=== PATIENT | male | born 1965 | race Caucasian/White ===

== ENCOUNTER 2017-07-09 05:09 | Inpatient (IN) | payer OTHER ==
[2017-07-09] VITALS (51 sets, daily range): BP systolic 99–135; BP diastolic 56–77; PULSE 67–108; RESP 13–41; TEMP 98.3–98.6; O2SAT 90–97
[~2017-07-09] VITALS: Ht 177.8 cm; Wt 76.5 kg
[~2017-07-09 05:09] MED LIST: AMBI10TA PO; ASPI325T PO; CELE20TA PO; COUM5TAB PO; ERGO50000 PO; GLUC10TA3 PO; GLUCTAB PO; HYDR10TA16 PO; IMDU30TA PO; METH500T3 PO; METO25 PO; OMEG1CAP53 PO; ROSU10 PO; TRAZ50TA78 PO
[2017-07-09] MEDS ORDERED: MORPHINE SULFATE 4 MG/ML INJ IV PUSH PRN (06:00)
[2017-07-09] MEDS ORDERED: ACETAMINOPHEN/HYDROcodone 325 MG/7.5 MG TAB PO PRN (06:00)
[2017-07-09] MEDS ORDERED: NITROGLYCERIN 0.4 MG SL 25 TABS/BTL SL PRN (06:00)
[2017-07-09] MEDS ORDERED: ACETAMINOPHEN 500 MG CPLT PO PRN (06:00)
[2017-07-09] MEDS ORDERED: SODIUM CHLORIDE 0.9% FLUSH 10 ML FLUSH IV FLUSH PRN (06:00)
[2017-07-09] MEDS ORDERED: DEXTROSE 50% IN WATER 50 ML VIAL(D50) IV PUSH PRN (06:15)
[2017-07-09] MEDS ORDERED: GLUCAGON 1 MG/ML VIAL OTHER PRN (06:15)
[2017-07-09] MEDS ORDERED: HEPARIN-D5W 25,000 U/250 ML 250 ML IV PRN ×2 (06:15→09:00)
[2017-07-09] MEDS ORDERED: CHLORHEXIDINE GLUCONATE 2 % 1 PACK (2 CLOTHS)(extra cloths) TOPICAL PRN (08:45)
[2017-07-09] MEDS: SODIUM CHLORIDE 0.9% FLUSH 10 ML FLUSH IV FLUSH SCH ×2 (09:00→21:00)
[2017-07-09] MEDS ORDERED: DIAZEPAM 10 MG TAB PO SCH (09:30)
[2017-07-09] MEDS ORDERED: MIDAZOLAM HCL 2 MG/2 ML VIAL IV PUSH SCH (09:30)
[2017-07-09] MEDS ORDERED: diphenhydrAMINE HCL 50 MG CAP PO SCH (09:30)
[2017-07-09] MEDS: INSULIN ASPART SUPPLEMENTAL SCALE SQ SCH ×4 (10:11→21:01)
[2017-07-09] MEDS: ASPIRIN 325 MG TAB PO SCH (10:12)
[2017-07-09] MEDS ORDERED: PILL SPLITTER OTHER PRN (10:15)
--- NOTE | 2017-07-09 10:18 | MB ---
cc: Erick Walls MD DATE: 07/09/2017 REASON FOR CONSULTATION: Non-ST elevation myocardial infarction. HISTORY OF PRESENT ILLNESS: The patient is a 52-year-old white male with a history of coronary artery disease, diabetes, hyperlipidemia, nonsustained ventricular tachycardia, hypertension, who presented to the emergency room in [place] with chest pain. Last night at about 7 p.m., he developed fairly severe substernal chest pressure radiating to his jaws bilaterally, associated with shortness of breath without nausea or diaphoresis. The chest discomfort waxed and waned for several hours. Each time he would try taking sublingual nitroglycerin (he took a total of 8). The chest discomfort would decrease in intensity, but recur 30-40 minutes later. The chest pain finally resolved in the ambulance en route to [facility] at approximately 3 a.m. He denies dizziness, syncope, near syncope, palpitations, pedal edema, paroxysmal nocturnal dyspnea. In retrospect, he states he has had intermittent chest discomforts for the last several months, never lasting more than a few minutes and of much less intensity. He also reports episodes of "angina" which have awakened him from sleep. PAST MEDICAL HISTORY: 1. Coronary artery disease status post stenting of all 3 major vessels in 2005 in [place]. In October 2008, he developed severe re-stenosis of the left circumflex and right coronary artery and underwent bypass surgery 11/01/2008 with a left internal mammary artery to the LAD and vein graft to the right coronary artery. The left circumflex and obtuse marginals were apparently too small for grafting. The patient developed severe and chronic problems with sternal wound infection and nonhealing necessitating a number of operations for debridement and eventually pectoralis muscle flaps. 2. Diabetes. 3. Hyperlipidemia. 4. Questionable remote history of pulmonary embolism. 5. Hypertension. 6. Nonsustained ventricular tachycardia demonstrated by monitoring in the hospital 10/2009. PAST SURGICAL HISTORY: 1. Coronary artery bypass grafting 11/01/2008. 2. Sternal re-wiring, open reduction and internal fixation of multiple sternal fractures 11/10/2008. 3. A number of sternal operations between October and February 2010, including sternal wire removal, debridement of skin, subcutaneous tissue and muscle, bilateral pectoralis flaps. CARDIAC MEDICATIONS AT HOME: None. ALLERGIES: TETANUS. FAMILY HISTORY: The patient's father has a history of a large myocardial infarction in his 30's and subsequent 3 bypass operations. SOCIAL HISTORY: The patient smokes a little less than a pack of cigarettes per day. He denies drug or alcohol abuse. REVIEW OF SYSTEMS: As in the History Of Present Illness, otherwise negative or noncontributory. He also denied headache, abdominal pain, melena, dyspepsia, bright red blood per rectum, flu symptoms, fever. PHYSICAL EXAMINATION: VITAL SIGNS: Blood pressure 110/62 with a pulse of 80, respirations 22. GENERAL: He is a well-developed, well-nourished white male, in no acute distress. NECK: Jugular venous pressure is normal. Carotid pulses are 2+ bilaterally and without bruits. CHEST: Reveals unlabored respiratory effort with clear lungs العلي. CARDIAC: He has a regular rhythm and rate without S3, S4, or murmur. ABDOMEN: He has a soft, nontender abdomen. Bowel sounds are present. There is no definite hepatosplenomegaly. EXTREMITIES: Reveals no clubbing, cyanosis or edema. LABORATORY DATA: Includes WBC 12.2, hemoglobin 14.5, platelets 164. Potassium 3.9, BUN 18, creatinine 1.10. Troponin 1.48. CK 125, CK-MB 6.9. EKG shows sinus rhythm. right atrial enlargement, nonspecific intraventricular conduction delay, anterior and lateral ST and T-wave abnormalities, consider ischemia. Chest x-ray shows increased interstitial markings of unclear chronicity. IMPRESSION: Unstable angina, non-ST elevation myocardial infarction in this 52-year-old white male with a history of coronary artery disease, diabetes, hypertension, hyperlipidemia, nonsustained ventricular tachycardia. Symptoms over the past several weeks to several months have been escalating in severity and frequency most suggestive of unstable angina. Initial cardiac enzymes are abnormal. EKG shows ischemic anterolateral ST and T-wave abnormalities. He does have known unbypassed severe left circumflex disease. I suspect, however, that the culprit lesion accounting for her symptoms is in the vein graft to the right coronary artery. I have recommended, given the instability of his symptoms, which have been occurring at rest, cardiac catheterization with probable percutaneous coronary or graft intervention. The risks, which have been explained to him including, but not limited to , myocardial infarction, stroke, arrhythmia, bleeding, infection and renal failure. RECOMMENDATIONS: 1. Cardiac catheterization today. At this point, the patient would like to think about it further. 2. Start beta herbert and KODY inhibitor therapy as his blood pressures will allow. 3. Check a fasting lipid profile, although apparently he has been statin intolerant in the past. 4. If he does not undergo cardiac catheterization, check a 2-D echo to assess his left ventricular function. MD YOEL Rucker/KEN , 09:17 AM , 10:17 AM KURTIS
[2017-07-09] MEDS: SODIUM CHLOR 0.9% 1000 ML INJ 1,000 ML IV SCH ×2 (10:24→19:18)
[2017-07-09 10:47] LABS: TROPONIN I 4.95 NG/ML (0.02-0.05)
[2017-07-09] MEDS ORDERED: MIDAZOLAM HCL 2 MG/2 ML VIAL ONE (11:45)
[2017-07-09] MEDS ORDERED: HEPARIN-NS/PF FLUSH BAG 1,000 ML IV FLUSH ONE (11:46)
[2017-07-09] MEDS ORDERED: SODIUM CHLOR 0.9% 1000 ML INJ 1,000 ML IV SCH (12:48)
--- NOTE | 2017-07-09 12:55 | CATHPROC ---
[facility] HIS Report Study Information Study Number Admission Scheduled Start Study Start [id number] Jul 09 2017 6:50AM 07/09/2017 Jul 09 2017 11:32AM [place] Service Cardiac Catheterization Admit Source Facility Department Emergency department [facility] - [facility] Manager Physician and Clinical Staff Initial Erick Jones Sales Agent Pavel Mathews,RN Sales Agent Pavel Key,RN Recorder Emilie Rendon,RT(R) Scrub Long Dodson RCIS(BS) Procedures Performed Procedure Location (Site) Vessel Name Angiogram LV Aortic Angiogram LV LV Ventricle Coronary Angiograms LCA Left Coronary Coronary Angiograms RCA Right Coronary Coronary Angiograms ROLAND-LAD Left Coronary Coronary Angiograms SVG-RCA Right Coronary L Heart Cath Wire insertion Fem Art (right) Femoral Art Equipment Time Duck Bill Operator Description Size Mfg Part Number Used/Scraped TRANSDUCER, TRUWAVE [id number] 11:38 TRUJILLO MYERS * Used W/STOCKCOCK *[id number] *[id number] *[id number] *[id number] *[id number] WIRE, HYDROSTEER 150CM [id number] 12:26 DAIG/ST. [employer]LA [employer] 150CM Used ANGLED GLIDE *[id number] 11:38 MEDLINE INDUSTRIES PACK, CCL CUSTOM * Used *[id number] 11:38 MEDLINE PACER PEN, SKIN DUAL W/ RULER * Used *[id number] 11:38 [employer] MEDICAL SHEATH, FR6.5 PRELUDE 11CM FR 6.5 038ACT Used *[id number] 11:38 [employer] MEDICAL WIRE, 3MMJ .035 180CM 180CM Used *[id number] 11:38 NAMIC MANIFOLD, 4 PORT * Used *[id number] 11:38 NYCOMED OMNIPAQUE, 350 MG, 150ML 150ML [id number] Used 12:32 NYCOMED OMNIPAQUE, 350 MG, 50ML 50ML [id number] Used 12:34 NYCOMED OMNIPAQUE, 350 MG, 50ML 50ML [id number] Used [id number] 11:38 PADRON MEDICAL BLANKET,WARM AIR CCL * Used *[id number] Equipment Model, Serial, Lot Number and Expiration Data Description Model Number Serial Number Lot Number Expiration Date WIRE, HYDROSTEER 150CM [id number] 05-08-2020 ANGLED GLIDE History: Allergies Allergy Reaction tetanus immune globulin tetanus toxoid, adsorbed Edema History: Risk Factors Family History of Hypertension Dyslipidemia Previous DC Previous Heart Failure Premature CAD Yes Yes Yes Yes No Prior Valve Prior PCI Prior PCIDate Prior CABG Prior CABGDate Surgery No Yes 03/11/2005 Yes 11/01/2008 Cerebrovascular Peripheral Artery Chronic Lung On Dialysis Diabetes Diabetes Therapy Disease Disease Disease No No No No Yes Insulin History: Symptoms/Diagnosis Selection Items Chest pain SOB History: Other Disease Selection Items CAD History: Other Current Smoker Method Packs a Day Years Used Pack Years Yes Cigarettes 1 43 43 Labs Hgb (g/dl) Hct (%) WBC (l/cumm) Platelets (thousands) 11.60-17.00 35.00-51.00 4.00-11.00 150.00-450.00 14.5 42 12.2 164 Glucose (mg/dl) BUN (mg/dl) Creatinine (mg/dl) BUN:Creatinine (1:x) 74.00-106.00 7.00-18.00 0.50-1.30 10.00-20.00 214 18 1.1 16.4 Na (meq/l) K (meq/l) 136.00-145.00 3.50-5.10 139 3.9 INR (PTT:PT) 0.90-1.10 1 Troponin I (ng/ml) CPK (u/l) CPK-MB (ng/ML) 0.02-0.05 26.00-308.00 0.50-3.60 4.95 188 6.9 Medication Medication Total Dose (Bolus/Oral) Medication Total Dosage/Unit 1% XYLOCAINE 20 mL FENTANYL 25 mcg VERSED 1 mg Medications (Bolus/Oral) Medication Time Given Dosage/Unit Administered By Reason VERSED 07/09/2017 12:18:56 PM 1 mg Pavel Key 1 mg VERSED given in lab by Pavel Key RN in Left Antecubital via Peripheral IV. Ordered by Erick Walls. FENTANYL 07/09/2017 12:19:10 PM 25 mcg Pavel Key 25 mcg FENTANYL given in lab by Pavel Key RN in Left Antecubital via Peripheral IV. Ordered by Erick Millard. 1% XYLOCAINE 07/09/2017 12:19:36 PM 20 mL Erick Walls 20 mL 1% XYLOCAINE given in lab by Erick Walls in Right Groin via Subcutaneous. Medication (Drip) Medication Time Given Dosage/Unit Concentration/Unit Diluent (ml) Solution IV Solutions 07/09/2017 11:52:36 AM 50 mL (IV) NaCl .9 IV Solutions given in lab by Pavel Mathews RN in Left Antecubital via Peripheral IV. Pump/Drip Flow u sing NaCl .9. Initial Case Assessment Cardiovascular HR Rhythm NIBP Chest Pain 66 bundle branch 100/59 0 Edema Present Skin color Skin None Normal Warm Dry Circulatory - Right Pulses Dorsalis Pedis Femoral 2 2 Scale (0,1,2,3,4,d) Circulatory - Left Pulses Dorsalis Pedis Femoral 2 2 Scale (0,1,2,3,4,d) Neurological State Oriented to time-place- Alert Moves all extremities person Respiration - General Respiration Rate SpO2 (%) O2 (lpm) (B/min) 16 99 2 Chronological Log Time Study Chronological Log 11:51:20 Patient arrived via Bed. 11:52:23 Patient Name, D.O.B, / Armband Verified By R.N. 11:52:24 Consent signed by the physician and the patient and verified by the Pre School Manager staff. 11:52:24 Pre-op and post- op instructions given; patient acknowledges understanding of instruction s. 11:52:26 Verbal Stimulation=2 Physical Stimulation=2 Airway=2 Respiration=2 TOTAL=8. (0=absent, 1= limited, 2=present) 11:52:28 Presedation assessment performed by Pre School Manager RN. 11:52:30 Patient has been NPO for More than 6Hrs. 11:52:31 Skin Breakdown- none per pt 11:52:32 Patient Warmer Placed on the Table. 11:52:34 Shantel Prominences Protected 11:52:35 A # 22 IV was noted in the Antecubital (left). Grade = 0 11:52:36 IV Solutions given in lab by Pavel Mathews RN in Left Antecubital via Peripheral IV. Pump/D rip Flow using NaCl .9. 11:52:37 History and physical on the chart or being dictated. Vitals capture started with the following parameters, Patient=Adult, Interval=5 min, Initial Pr etxtvr=124 mmHg, 12:00:21 Deflation Rate=5 mmHg, Cuff placed on Left Arm 12:00:40 Reference ECG taken 12:00:59 HR=68 bpm, ZJVC=394/59 mmhg, SpO2=98.0 %, Resp=20 B/min 12:03:27 Bilateral groins prepped with 2% chlorhexidine, and draped after a 3 minute waiting time. Assessment: Initial Case, HR=66 BPM, Rhythm=bundle branch, BYQJ=664/59 mmhg, Chest Pain=0, Wiliam a=None, Color=Normal, Skin = Warm, Dry Right Pulses: Cesar Ped=2, Femoral=2 12:04:06 Left Pulses: Cesar Ped=2, Femoral=2 Neurological: State=Alert, Ox3, MELTON Respiration: Resp=16 B/min, SpO2=99 %, O2=2 lpm 12:05:36 MD paged 12:05:50 HR=66 bpm, ECUU=047/64 mmhg, SpO2=98.0 %, Resp=16 B/min 12:09:59 Pressure channel 1 zeroed. 12:10:53 HR=66 bpm, NIJR=180/55 mmhg, SpO2=98.0 %, Resp=22 B/min 12:11:17 MD responded 12:15:14 MD arrived. 12:15:52 HR=66 bpm, YVTO=095/63 mmhg, SpO2=97.0 %, Resp=22 B/min Time Out. Correct patient, correct procedure, correct physician, power injector not loaded with contrast with surgical 12:18:17 team present. Time Out Concurred by MD and individual staff in procedure. 12:18:56 1 mg VERSED given in lab by Pavel Key, RN in Left Antecubital via Peripheral IV. Ordere d by Erick Walls. 12:19:10 25 mcg FENTANYL given in lab by Pavel Key RN in Left Antecubital via Peripheral IV. Or dered by Erick Walls. 12:19:33 Case Start 12:19:36 20 mL 1% XYLOCAINE given in lab by Erick Walls in Right Groin via Subcutaneous. 12:20:52 Access site was Right Femoral Artery. 12:20:56 HR=63 bpm, LLXM=985/60 mmhg, SpO2=99.0 %, Resp=16 B/min 12:20:58 A SHEATH, FR6.5 PRELUDE 11CM FR 6.5 was advanced into the Fem Art (right) using the Percuta neous technique. A JL 4.0 INFINITI CATHETER FR 6 was advanced over a wire. OMNIPAQUE, 350 MG, 150ML 150ML was us ed for 12:21:39 injections. 12:22:25 The LCA was injected and visualized at various angles. OMNIPAQUE, 350 MG, 150ML 150ML used . 12:22:40 Catheter was removed A 3DRC INFINITI CATHETER FR 6 was advanced over a wire. OMNIPAQUE, 350 MG, 150ML 150ML was used for 12:23:04 injections. 12:23:45 The RCA was injected and visualized at various angles. OMNIPAQUE, 350 MG, 150ML 150ML used . 12:24:45 A WIRE, 3MMJ .035 180CM 180CM was inserted via Fem Art (right). 12:25:39 Wire removed 12::57 HR=63 bpm, NIBP=98/59 mmhg, SpO2=98.0 %, Resp=17 B/min 12:26:14 A WIRE, HYDROSTEER 150CM ANGLED GLIDE 150CM was inserted via Fem Art (right). 12:26:48 [place] Wire removed 12::57 The ROLAND-LAD was injected and visualized at various angles. OMNIPAQUE, 350 MG, 150ML 150ML used. 12:28:17 Catheter was removed A MPA-2 INFINITI CATHETER FR 6 was advanced over a wire. OMNIPAQUE, 350 MG, 150ML 150ML was use d for 12:28:26 injections. Recorded Pressure: Ao, HR=69, Condition=Condition 1 12:29:24 (Aorta) Ao 99/56/73 12:30:33 The SVG-RCA was injected and visualized at various angles. OMNIPAQUE, 350 MG, 150ML 150ML u sed. STUMP 12:30:56 HR=66 bpm, NIBP=97/58 mmhg, SpO2=98.0 %, Resp=18 B/min 12:31:08 Catheter was removed A PIGTAIL STR INFINITI CATHETER FR 6 was advanced over a wire. OMNIPAQUE, 350 MG, 150ML 150ML w as used for :31:56 injections. Recorded Pressure: LV, HR=67, Condition=Condition 1 12:32:48 (Left Ventricle) LV 97/16/25 12:34:11 The LV was injected at 12 cc/sec for a total of 42. OMNIPAQUE, 350 MG, 50ML 50ML used. Recorded Pressure: LV, Ao, HR=70, Condition=Condition 1 12:34:20 (Left Ventricle) LV 100/12/20, (Aorta) Ao 99/56/73 12:35:08 The Aortic was injected at 12 cc/sec for a total of 40. OMNIPAQUE, 350 MG, 50ML 50ML used. 12:35:30 Catheter was removed 12:35:57 HR=79 bpm, WVAR=792/61 mmhg, SpO2=99.0 %, Resp=19 B/min 12:36:22 An injection in the Fem Art (right) was made through the SHEATH, FR6.5 PRELUDE 11CM FR 6.5. 12:37:46 Case End 12:38:09 Activated Clotting Time Drawn 12:40:56 HR=66 bpm, KYHY=137/67 mmhg, QzT9=222.0 %, Resp=16 B/min 12:42:37 ACT (Normal Range 90-180) = 136 12:43:04 Sheath removed; pressure applied to access site. 12:44:17 No case complications noted. 12:44:23 Cine recording checked. 12:44:28 A Left Heart Cath was performed. 12:45:57 HR=75 bpm, CEEF=607/70 mmhg, QmI5=134.0 %, Resp=20 B/min 12:51:00 HR=71 bpm, LYNW=121/71 mmhg, SpO2=99.0 %, Resp=18 B/min 12:55:00 Sterile dressing applied to site 12:55:09 Vitals capture stopped. 13:00:00 Patient moved to stretcher End Study - Contrast Media Used In Study Contrast Total Opened (mL) Total Used (mL) Total Wasted (mL) Omnipaque 130 130 0 End Study - Maximum Contrast Load Max Contrast Load (mL) 338.6 End Study - Radiation Exposure Fluoro Time (minutes) 5.7 End Study - Sheaths Sheaths Pulled By Sheath Hold Time (min) Long Dodson 20 End Study - Patient Disposition Complications Transferred To Interventional Outcome No Telemetry Bed No attempt made
[2017-07-09] MEDS ORDERED: ATROPINE SULFATE 1 MG/ML VIAL IV PRN (13:00)
[2017-07-09] MEDS ORDERED: MISC INFORMATION XX ONE (13:00)
[2017-07-09] MEDS ORDERED: SODIUM CHLOR 0.9% 250 ML INJ 250 ML IV PRN (13:00)
--- NOTE | 2017-07-09 13:00 | MA ---
cc: Erick Walls MD DATE: 07/09/2017 PROCEDURE: Left heart catheterization, selective coronary and graft angiography, left ventriculography, aortic root injection. PROCEDURE NOTES: The patient was brought to the cardiac catheterization laboratory in a fasting state after having signed informed consent. The right groin was prepped and draped as per policy and anesthetized with 1% lidocaine. Arterial access was obtained via the right femoral artery and a 6-[place] sheath placed. Coronary arteriography was performed using 6-[place] Mon[place] left 4.0 and right progressive catheters. The left internal mammary artery was engaged with a progressive right catheter. The vein graft to the right coronary artery was engaged with a multipurpose catheter. Left ventriculography and aortic root injection were done using a standard 6-[place] pigtail. There were no apparent, immediate complications. Manual pressure was applied to his femoral arteriotomy site to achieve good hemostasis. HEMODYNAMIC DATA: Left ventricle 100 with an end diastolic pressure 20, aorta 99/56 with a mean of 73. There was no significant transvalvular aortic gradient on pullback of the pigtail catheter. CORONARY ARTERIOGRAPHY: The left main is a relatively short vessel with possibly up to 40% ostial to mid stenosis. The left anterior descending is totally occluded proximally. The left circumflex is totally occluded proximally. The right coronary artery is totally occluded at its origin. GRAFT ANGIOGRAPHY: The left internal mammary artery to the LAD is widely patent. There is a fairly extensive collateral network from the LAD to the right coronary artery and scant collaterals to the left circumflex. There is also faint filling of a diffusely and severely diseased diagonal. The vein graft to the right coronary artery is totally occluded near its origin, confirmed by aortic root injection. LEFT VENTRICULOGRAPHY: Contrast injection of the left ventricle reveals severe global hypokinesis. Ejection fraction is likely no greater than 10-15%. CONCLUSIONS: 1. Severe 3-vessel [place] coronary artery disease. 2. Right dominant system. 3. Patent left internal mammary artery to the left anterior descending, totally occluded vein graft to the right coronary artery. 4. Good left to right collaterals. 5. Severely reduced left ventricular systolic function with ejection fraction estimated at 10%. MD YOEL Rucker/KEN , 12:46 PM , 12:59 PM KURTIS
[2017-07-09] MEDS ORDERED: IOHEXOL 350 MG/ML 50 ML BTL (for Cath Lab) OTHER ONE (14:54)
[2017-07-09] MEDS ORDERED: IOHEXOL 350 MG/ML 100 ML BTL (for Cath Lab) OTHER ONE (14:54)
--- NOTE | 2017-07-09 16:11 | HHI.HP ---
[facility] Service [facility] Primary Care Physician Unknown Admission Diagnosis Diagnoses: (1) Non-ST elevation OK (NSTEMI) Chief Complaint: Chest pain History of Present Illness 52-year-old man with history of CAD, hyperlipidemia, hypertension and noncompliant with medical care presented to [facility] ED last night for evaluation of an acute onset of substernal chest pain rated 8 out of 10 in intensity with radiation to bilateral jaws associated with shortness of breath without any palpitation, diaphoresis or nausea.. Patient reported the pain to be on and off and states soma initially improved with nitroglycerin for less than 30 minutes. A my exam this morning, patient reported improvement of symptoms. Chest x-ray in the ED was noted to be without any cardio pulmonary disease. Initial cardiac enzyme elevated to 1.4. Patient denies any GI bleed. Review of Systems Except as stated in HPI: all other systems reviewed are Neg Past Family Social History Past Medical History 1. CAD 2. Diabetes. 3. Hyperlipidemia. 4. Questionable remote history of pulmonary embolism. 5. Hypertension. 6. Nonsustained ventricular tachycardia demonstrated by monitoring in the hospital 10/2009. Past Surgical History 1. Coronary artery bypass grafting 11/01/2008. 2. Sternal re-wiring, open reduction and internal fixation of multiple sternal fractures 11/10/2008. 3. A number of sternal operations between October and February 2010, including sternal wire removal, debridement of skin, subcutaneous tissue and muscle, bilateral pectoralis flaps. Reported Medications See EMR Allergies: Coded Allergies: tetanus toxoid, adsorbed (Unverified Allergy, Severe, Edema, 10/23/16) tetanus immune globulin (Unverified Allergy, Unknown, 10/23/16) Family History CAD, hypertension, diabetes Social History Patient smokes 8-10 cigarettes per day, denies alcohol or illicit drug intake. Physical Exam Vital Signs Vital Signs Date Time Temp Pulse Resp B/P (MAP) Pulse Ox O2 Delivery O2 Flow Rate FiO2 07/09/17 14:15 77 41 103/60 (74) 91 07/09/17 14:15 77 41 103/60 (74) 91 07/09/17 14:00 72 5/1/18 14:00 78 41 100/58 (72) 90 07/09/17 14:00 71 41 100/58 (72) 90 07/09/17 14:00 78 41 100/58 (72) 90 07/09/17 14:00 78 41 100/58 (72) 90 07/09/17 14:00 78 41 100/58 (72) 90 07/09/17 13:00 69 18 109/66 (80) 07/09/17 12:00 72 07/09/17 12:00 98.6 69 18 100/58 (72) 97 07/09/17 10:00 72 Physical Exam GENERAL: This is a well-nourished, well-developed patient, in no apparent distress. SKIN: No rashes, ecchymoses or lesions. Cool and dry. HEAD: Atraumatic. Normocephalic. No temporal or scalp tenderness. EYES: Pupils equal round and reactive. Extraocular motions intact. No scleral icterus. No injection or drainage. ENT: Nose without bleeding, purulent drainage or septal hematoma. Throat without erythema, tonsillar hypertrophy or exudate. Uvula midline. Airway patent. NECK: Trachea midline. No JVD or lymphadenopathy. Supple, nontender, no meningeal signs. CARDIOVASCULAR: Regular rate and rhythm without murmurs, gallops, or rubs. RESPIRATORY: Clear to auscultation. Breath sounds equal bilaterally. No wheezes , rales, or rhonchi. GASTROINTESTINAL: Abdomen soft, non-tender, nondistended. No hepato-splenomegaly , or palpable masses. No guarding. MUSCULOSKELETAL: Extremities without clubbing, cyanosis, or edema. No joint tenderness, effusion, or edema noted. No calf tenderness. Negative Homans sign bilaterally. NEUROLOGICAL: Awake and alert. Cranial nerves II through XII intact. Motor and sensory grossly within normal limits. Five out of 5 muscle strength in all muscle groups. Normal speech. Laboratory Laboratory Tests Test 07/09/17 07:30 07/09/17 10:01 Nasal Screen MRSA (PCR) MRSA NOT DETECTED Activated Partial Thromboplast Time 37.4 Total Creatine Kinase 188 Troponin I 4.95 Septic Shock Reassessment Septic shock perfusion: reassessment completed Caprini VTE Risk Assessment Caprini VTE Risk Assessment: No/Low Risk (score <= 1) Caprini Risk Assessment Model Point Value = 1 Point Value = 2 Point Value = 3 Point Value = 5 Age 41-60 Minor surgery BMI > 25 kg/m2 Swollen legs Varicose veins or History of unexplained or recurrent spontaneous Oral contraceptives or hormone replacement Sepsis (< 1 month) Serious lung disease, including pneumonia (< 1 month) Abnormal pulmonary function Acute myocardial infarction Congestive heart failure (< 1 month) History of inflammatory bowel disease Medical patient at bed rest Age 61-74 Arthroscopic surgery Major open surgery (> 45 min) Laparoscopic surgery (> 45 min) Malignancy Confined to bed (> 72 hours) Immobilizing plaster cast Central venous access Age >= 75 History of VTE Family history of VTE Factor V Leiden Prothrombin [id number] Lupus anticoagulant Anticardiolipin antibodies Elevated serum homocysteine Heparin-induced thrombocytopenia Other congenital or acquired thrombophilia Stroke (< 1 month) Elective arthroplasty Hip, pelvis, or leg fracture Acute spinal cord injury (< 1 month) Prophylaxis Regimen Total Risk Factor Score Risk Level Prophylaxis Regimen 0-1 Low Early ambulation 2 Moderate Order ONE of the following: *Sequential Compression Device (SCD) *Heparin 5000 units SQ BID 3-4 Higher Order ONE of the following medications: *Heparin 5000 units SQ TID *Enoxaparin/Lovenox 40 mg SQ daily (WT < 150 kg, CrCl > 30 mL/min) *Enoxaparin/Lovenox 30 mg SQ daily (WT < 150 kg, CrCl > 10-29 mL/min) *Enoxaparin/Lovenox 30 mg SQ BID (WT < 150 kg, CrCl > 30 mL/min) AND/OR *Sequential Compression Device (SCD) 5 or more Highest Order ONE of the following medications: *Heparin 5000 units SQ TID (Preferred with Epidurals) *Enoxaparin/Lovenox 40 mg SQ daily (WT < 150 kg, CrCl > 30 mL/min) *Enoxaparin/Lovenox 30 mg SQ daily (WT < 150 kg, CrCl > 10-29 mL/min) *Enoxaparin/Lovenox 30 mg SQ BID (WT < 150 kg, CrCl > 30 mL/min) AND *Sequential Compression Device (SCD) Assessment and Plan Problem List: (1) Non-ST elevation OK (NSTEMI) ICD Code: I21.4 - Non-ST elevation (NSTEMI) myocardial infarction Assessment and Plan 52-year-old man with Non-ST elevation OK Currently on heparin drip Cardiology consulted for evaluation for left heart catheterization Start beta-herbert, KODY inhibitor, aspirin, statin Continue with Nitropaste Check 2D echo, lipid profile CXR noted and review by me without any CPD Elevated Blood glucose Check hA1c and treat accordingly Tobacco abuse Tobacco counseling cessation provided DVT prophylaxis: Heparin Code Status Full code Discussed Condition With Patient Physician Certification 2 Midnight Certification Type: Admission for Inpatient Services Order for Inpatient Services The services are ordered in accordance with Medicare regulations or non- Medicare payer requirements, as applicable. In the case of services not specified as inpatient-only, they are appropriately provided as inpatient services in accordance with the 2-midnight benchmark. Estimated LOS (days): 2 days is the estimated time the patient will need to remain in the hospital, assuming treatment plan goals are met and no additional complications. Post-Hospital Plan: Not yet determined Chapincito Kelley MD July 09, 2017 16:11
[2017-07-09 18:06] LABS: TROPONIN I 4.98 NG/ML (0.02-0.05)
[2017-07-09] MEDS: ENALAPRIL MALEATE 2.5 MG TAB PO SCH (21:01)
[2017-07-09] MEDS: METOPROLOL TARTRATE 25 MG TAB PO SCH (21:01)
[2017-07-10] VITALS (13 sets, daily range): BP systolic 87–116; BP diastolic 48–66; PULSE 59–80; RESP 18–28; TEMP 97.8–98; O2SAT 92–99
[2017-07-10] MEDS: CHLORHEXIDINE GLUCONATE 2 % 1 PACK (2 CLOTHS)(taper/protocol) TOPICAL SCH (04:00)
[2017-07-10 06:52] LABS: AUTOMATED NEUTROPHIL # 5.1 TH/MM3 (1.8-7.7); BASOPHIL # 0.1 TH/MM3 (0-0.2); EOSINOPHIL % 0.7 % (0.0-4.0); HEMATOCRIT 40.1 % (39.0-51.0); HEMOGLOBIN 13.7 GM/DL (13.0-17.0); LYMPH % 20.3 % (9.0-44.0); LYMPHOCYTE # 1.4 TH/MM3 (1.0-4.8); MEAN CELL VOLUME 96.6 FL (80.0-100.0); MEAN CORPUSCULAR HEMOGLOBIN 32.9 PG (27.0-34.0); MEAN PLATELET VOLUME 10.2 FL (7.0-11.0); MONO % 4.4 % (0.0-8.0); MONOCYTE # 0.3 TH/MM3 (0-0.9); NEUT % 73.6 % (16.0-70.0); PLATELET COUNT 123 TH/MM3 (150-450); RED BLOOD COUNT 4.15 MIL/MM3 (4.50-5.90); RED CELL DISTRIBUTION WIDTH 14.3 % (11.6-17.2); WHITE BLOOD COUNT 6.9 TH/MM3 (4.0-11.0)
[2017-07-10 07:13] LABS: BICARBONATE 25.9 MEQ/L (21.0-32.0); BLOOD UREA NITROGEN 16 MG/DL (7-18); CALCIUM 8.1 MG/DL (8.5-10.1); CHLORIDE 106 MEQ/L (98-107); CHOLESTEROL 408 MG/DL (120-200); CREATININE 0.96 MG/DL (0.60-1.30); GLOMERULAR FILTRATION RATE 83 ML/MIN (>89); GLUCOSE,RANDOM 131 MG/DL (74-106); SODIUM (NA) 139 MEQ/L (136-145); TRIGLYCERIDES 147 MG/DL (42-150)
[2017-07-10 07:15] LABS: CHOLESTEROL/ HDL RATIO 13.97 RATIO; HDL CHOLESTEROL 29.2 MG/DL (40.0-60.0); LDL CHOLESTEROL 349 MG/DL (0-99)
--- NOTE | 2017-07-10 08:03 | PD.CARD.PN ---
Subjective Subjective Remarks Denies further CP. No dyspnea, PND, dizziness, palpitations. Objective Medications Item Value Date Time Metoprolol 12.5 mg 07/09/172099 Tartrate Q12HR/PO 07/09/172100 (Lopressor) Enalapril Maleate 2.5 mg 07/09/172099 (Vasotec) DAILY@2100/PO 07/09/172100 Aspirin 325 mg 07/09/17 0900 (Aspirin) DAILY/PO 07/09/17 1012 Current Medications Medications (Trade) Dose Ordered Sig/[place] Route Start Time Stop Time Status Last Admin (NS Flush) 2 ml BID IV FLUSH 07/09/17 09:00 07/09/17 09:00 (NS Flush) 2 ml UNSCH PRN IV FLUSH 07/09/17 06:00 (Aspirin) 325 mg DAILY PO 07/09/17 09:00 07/09/17 10:12 (Nitrostat Sl) 0.4 mg Q5M PRN SL 07/09/17 06:00 (Tylenol) 500 mg Q4H PRN PO 07/09/17 06:00 ([place] 7.5-325 Mg) 1 tab Q4H PRN PO 07/09/17 06:00 (Morphine Inj) 2 mg Q3H PRN IV PUSH 07/09/17 06:00 (D50w (Vial) Inj) 50 ml UNSCH PRN IV PUSH 07/09/17 06:15 (Glucagon Inj) 1 mg UNSCH PRN OTHER 07/09/17 06:15 (NovoLOG SUPPLEMENTAL SCALE) 1 ACHS SLIDING SCALE SQ 07/09/17 08:00 07/09/17 21:01 ([facility] Nursing Information) Patient in critical care unit? Ass... Q361D .XX 07/09/17 08:45 (Chlorhexidine 2% Cloth) 3 pack DAILY@04 TOPICAL 07/10/17 04:00 07/14/17 04:01 (Chlorhexidine 2% Cloth) 3 pack UNSCH PRN TOPICAL 07/09/17 08:45 07/14/17 08:38 (Lopressor) 12.5 mg Q12HR PO 07/09/17 21:00 07/09/17 21:01 (Vasotec) 2.5 mg DAILY@2100 PO 07/09/17 21:00 07/09/17 21:01 Sodium Chloride 1,000 ml @ 100 mls/hr Q10H IV 07/09/17 09:18 07/14/17 09:17 07/09/17 10:24 (Benadryl) 50 mg [employer] PO 07/09/17 09:30 07/13/17 09:29 07/09/17 10:19 (Valium) 10 mg [employer] PO 07/09/17 09:30 07/13/17 09:29 07/09/17 11:25 (fentaNYL INJ) 50 mcg [employer] IV PUSH 07/09/17 09:30 07/13/17 09:29 07/09/17 11:26 (Versed Inj) 1 mg [employer] IV PUSH 07/09/17 09:30 07/13/17 09:29 07/09/17 11:25 (Pill Splitter) 1 ea UNSCH PRN OTHER 07/09/17 10:15 07/09/17 21:02 (Atropine Inj) 0.5 mg UNSCH PRN IV 07/09/17 13:00 Sodium Chloride 250 ml @ 0 mls/hr UNSCH X1 PRN IV 07/09/17 13:00 07/10/17 12:59 Vital Signs / I&O Vital Signs Date Time Temp Pulse Resp B/P (MAP) Pulse Ox O2 Delivery O2 Flow Rate FiO2 07/10/17 06:00 59 07/10/17 04:00 98.0 64 23 92/48 (63) 96 07/10/17 04:00 64 07/10/17 02:00 80 07/10/17 00:00 69 07/10/17 00:00 97.8 69 28 87/50 (62) 92 07/09/17 23:00 75 28 105/61 (76) 93 07/09/17 22:00 70 20 107/59 (75) 91 07/09/17 22:00 70 07/09/17 21:45 68 24 114/60 (78) 94 07/09/17 21:34 68 23 94 07/09/17 21:30 72 24 111/57 (75) 95 07/09/17 21:15 72 28 111/59 (76) 95 07/09/17 21:00 68 25 112/63 (79) 94 5/1/18 20:45 72 27 112/63 (79) 94 07/09/17 20:34 75 29 94 07/09/17 20:30 71 23 109/59 (76) 94 07/09/17 20:15 77 29 118/62 (80) 94 07/09/17 20:00 87 07/09/17 20:00 98.3 87 28 127/74 (91) 93 07/09/17 20:00 87 33 127/74 (91) 93 07/09/17 19:45 108 33 135/77 (96) 96 07/09/17 19:34 93 32 94 07/09/17 18:34 73 27 109/61 (77) 93 07/09/17 18:02 70 22 106/60 (75) 95 07/09/17 18:02 73 27 109/61 (77) 93 07/09/17 18:00 73 27 109/61 (77) 93 07/09/17 18:00 70 22 106/60 (75) 95 07/09/17 18:00 72 07/09/17 17:49 70 23 93 07/09/17 17:45 70 24 112/58 (76) 94 07/09/17 17:34 71 23 95 07/09/17 17:30 72 25 119/64 (82) 96 07/09/17 17:19 75 21 96 07/09/17 17:15 84 23 117/64 (81) 93 07/09/17 17:04 69 24 95 07/09/17 17:00 70 25 103/56 (72) 95 07/09/17 17:00 70 25 103/56 (72) 95 07/09/17 16:49 72 23 95 07/09/17 16:45 69 22 99/57 (71) 95 07/09/17 16:45 69 22 99/57 (71) 95 07/09/17 16:34 71 22 94 07/09/17 16:30 71 23 100/57 (71) 95 07/09/17 16:30 71 23 100/57 (71) 95 07/09/17 16:19 68 24 95 07/09/17 16:15 68 23 99/58 (72) 94 07/09/17 16:15 68 23 99/58 (72) 94 07/09/17 16:04 70 23 95 07/09/17 16:00 70 22 106/60 (75) 95 07/09/17 16:00 72 07/09/17 16:00 70 22 106/60 (75) 95 07/09/17 15:49 70 23 93 07/09/17 15:45 67 26 105/60 (75) 93 07/09/17 15:45 67 26 105/60 (75) 93 07/09/17 15:34 71 27 93 07/09/17 15:30 72 26 110/61 (77) 94 07/09/17 15:15 72 22 109/66 (80) 95 07/09/17 15:02 75 13 93 07/09/17 15:00 75 20 118/71 (87) 94 07/09/17 15:00 82 07/09/17 15:00 75 20 118/71 (87) 94 07/09/17 14:47 75 25 94 07/09/17 14:45 73 22 113/67 (82) 93 07/09/17 14:45 73 22 113/67 (82) 93 07/09/17 14:32 80 30 97 07/09/17 14:30 81 29 120/67 (84) 95 07/09/17 14:30 81 29 120/67 (84) 95 07/09/17 14:17 77 36 92 07/09/17 14:15 77 41 103/60 (74) 91 07/09/17 14:15 77 41 103/60 (74) 91 07/09/17 14:15 77 41 103/60 (74) 91 07/09/17 14:15 77 41 103/60 (74) 91 07/09/17 14:02 79 32 90 07/09/17 14:00 72 07/09/17 14:00 78 41 100/58 (72) 90 07/09/17 14:00 78 41 100/58 (72) 90 07/09/17 14:00 71 41 100/58 (72) 90 07/09/17 14:00 78 41 100/58 (72) 90 07/09/17 14:00 78 41 100/58 (72) 90 07/09/17 14:00 78 41 100/58 (72) 90 07/09/17 13:00 69 18 109/66 (80) 07/09/17 12:00 72 07/09/17 12:00 98.6 69 18 100/58 (72) 97 07/09/17 10:00 72 I/O 07/09/17 07/09/17 07/09/17 07/10/17 07/10/17 07/10/17 07:00 15:00 23:00 07:00 15:00 23:00 Intake Total 320 ml 1050 ml Output Total 475 ml 750 ml Balance -155 ml 300 ml Intake Oral 320 ml 360 ml IV Total 690 ml Output Urine Total 475 ml 750 ml # Voids 1 3 Physical Exam GENERAL: Well developed, well nourished. No acute distress. HEENT: Jugular venous pressure is normal. CHEST: Lungs clear to auscultation bilaterally. Unlabored respiratory effort. CARDIAC: Regular rate and rhythm without S3, S4, or murmur. ABDOMEN: Soft, nontender, no hepatosplenomegaly. Bowel sounds present. EXTREMITIES: No clubbing, cyanosis, or edema. Laboratory Laboratory Tests Test 07/09/17 10:01 07/09/17 16:55 07/10/17 04:43 Activated Partial Thromboplast Time 37.4 SEC Total Creatine Kinase 188 U/L 161 U/L Troponin I 4.95 NG/ML 4.98 NG/ML White Blood Count 6.9 TH/MM3 Red Blood Count 4.15 MIL/MM3 Hemoglobin 13.7 GM/DL Hematocrit 40.1 % Mean Corpuscular Volume 96.6 FL Mean Corpuscular Hemoglobin 32.9 PG Mean Corpuscular Hemoglobin Concent 34.0 % Red Cell Distribution Width 14.3 % Platelet Count 123 TH/MM3 Mean Platelet Volume 10.2 FL Neutrophils (%) (Auto) 73.6 % Lymphocytes (%) (Auto) 20.3 % Monocytes (%) (Auto) 4.4 % Eosinophils (%) (Auto) 0.7 % Basophils (%) (Auto) 1.0 % Neutrophils # (Auto) 5.1 TH/MM3 Lymphocytes # (Auto) 1.4 TH/MM3 Monocytes # (Auto) 0.3 TH/MM3 Eosinophils # (Auto) 0.0 TH/MM3 Basophils # (Auto) 0.1 TH/MM3 CBC Comment DIFF FINAL Differential Comment Blood Urea Nitrogen 16 MG/DL Creatinine 0.96 MG/DL Random Glucose 131 MG/DL Calcium Level 8.1 MG/DL Sodium Level 139 MEQ/L Potassium Level 4.1 MEQ/L Chloride Level 106 MEQ/L Carbon Dioxide Level 25.9 MEQ/L Anion Gap 7 MEQ/L Estimat Glomerular Filtration Rate 83 ML/MIN Triglycerides Level 147 MG/DL Cholesterol Level 408 MG/DL LDL Cholesterol 349 MG/DL HDL Cholesterol 29.2 MG/DL Cholesterol/HDL Ratio 13.97 RATIO Assessment and Plan Problem List: (1) CAD (coronary artery disease) ICD Codes: I25.10 - Atherosclerotic heart disease of [place] coronary artery without angina pectoris Status: Chronic Plan: Stable since admission. Cath shows severe 3 vessel [place] CAD with patent ROLAND to LAD and good LAD to RCA collaterals. Vein graft to RCA occluded. EF 10%. REC medical therapy; continue metoprolol, enalapril even if SBP in the 80's encouraged patient to aggressively pursue disability determination efforts discharge tomorrow if stable, will f/u as needed (2) Dilated cardiomyopathy ICD Codes: I42.0 - Dilated cardiomyopathy Status: Chronic Plan: EF 10% by cath. No definite CHF by today's exam. Rec continue beta herbert, KODY-I even if SBP in the 80's. (3) Hyperlipidemia ICD Codes: E78.5 - Hyperlipidemia, unspecified Status: Chronic Plan: Very very suboptimal lipid profile. Patient unfortunately intolerant of numerous statins (myalgias). Code Status full code Discussed Condition With patient, at length Problem Qualifiers (1) CAD (coronary artery disease): Qualified Codes: I25.110 - Atherosclerotic heart disease of [place] coronary artery with unstable angina pectoris (2) Hyperlipidemia: Qualified Codes: E78.2 - Mixed hyperlipidemia Erick Walls MD July 10, 2017 08:03
[2017-07-10] MEDS: ASPIRIN 325 MG TAB PO SCH (08:23)
[2017-07-10] MEDS: METOPROLOL TARTRATE 25 MG TAB PO SCH ×2 (08:23→20:58)
[2017-07-10] MEDS: SODIUM CHLORIDE 0.9% FLUSH 10 ML FLUSH IV FLUSH SCH ×2 (09:00→20:58)
--- NOTE | 2017-07-10 10:19 | HHI.PR ---
Subjective Remarks Follow-up non-ST elevation ME July 10, 2017-patient seen and examined, patient denies any chest pain, shortness of breath or heart palpitation. No acute event overnight. Status post left heart catheterization July 09, 2017 Objective Vitals Vital Signs Date Time Temp Pulse Resp B/P (MAP) Pulse Ox O2 Delivery O2 Flow Rate FiO2 07/10/17 06:00 59 07/10/17 04:00 98.0 64 23 92/48 (63) 96 07/10/17 04:00 64 07/10/17 02:00 80 07/10/17 00:00 69 07/10/17 00:00 97.8 69 28 87/50 (62) 92 07/09/17 23:00 75 28 105/61 (76) 93 07/09/17 22:00 70 20 107/59 (75) 91 07/09/17 22:00 70 07/09/17 21:45 68 24 114/60 (78) 94 07/09/17 21:34 68 23 94 07/09/17 21:30 72 24 111/57 (75) 95 07/09/17 21:15 72 28 111/59 (76) 95 07/09/17 21:00 68 25 112/63 (79) 94 07/09/17 20:45 72 27 112/63 (79) 94 07/09/17 20:34 75 29 94 07/09/17 20:30 71 23 109/59 (76) 94 07/09/17 20:15 77 29 118/62 (80) 94 07/09/17 20:00 87 07/09/17 20:00 98.3 87 28 127/74 (91) 93 07/09/17 20:00 87 33 127/74 (91) 93 07/09/17 19:45 108 33 135/77 (96) 96 07/09/17 19:34 93 32 94 07/09/17 18:34 73 27 109/61 (77) 93 07/09/17 18:02 70 22 106/60 (75) 95 07/09/17 18:02 73 27 109/61 (77) 93 07/09/17 18:00 73 27 109/61 (77) 93 07/09/17 18:00 70 22 106/60 (75) 95 07/09/17 18:00 72 07/09/17 17:49 70 23 93 07/09/17 17:45 70 24 112/58 (76) 94 07/09/17 17:34 71 23 95 07/09/17 17:30 72 25 119/64 (82) 96 07/09/17 17:19 75 21 96 07/09/17 17:15 84 23 117/64 (81) 93 07/09/17 17:04 69 24 95 07/09/17 17:00 70 25 103/56 (72) 95 07/09/17 17:00 70 25 103/56 (72) 95 07/09/17 16:49 72 23 95 07/09/17 16:45 69 22 99/57 (71) 95 07/09/17 16:45 69 22 99/57 (71) 95 07/09/17 16:34 71 22 94 07/09/17 16:30 71 23 100/57 (71) 95 07/09/17 16:30 71 23 100/57 (71) 95 07/09/17 16:19 68 24 95 07/09/17 16:15 68 23 99/58 (72) 94 07/09/17 16:15 68 23 99/58 (72) 94 07/09/17 16:04 70 23 95 07/09/17 16:00 70 22 106/60 (75) 95 07/09/17 16:00 72 07/09/17 16:00 70 22 106/60 (75) 95 07/09/17 15:49 70 23 93 07/09/17 15:45 67 26 105/60 (75) 93 07/09/17 15:45 67 26 105/60 (75) 93 07/09/17 15:34 71 27 93 07/09/17 15:30 72 26 110/61 (77) 94 07/09/17 15:15 72 22 109/66 (80) 95 07/09/17 15:02 75 13 93 07/09/17 15:00 75 20 118/71 (87) 94 07/09/17 15:00 82 07/09/17 15:00 75 20 118/71 (87) 94 07/09/17 14:47 75 25 94 07/09/17 14:45 73 22 113/67 (82) 93 07/09/17 14:45 73 22 113/67 (82) 93 07/09/17 14:32 80 30 97 07/09/17 14:30 81 29 120/67 (84) 95 07/09/17 14:30 81 29 120/67 (84) 95 07/09/17 14:17 77 36 92 07/09/17 14:15 77 41 103/60 (74) 91 07/09/17 14:15 77 41 103/60 (74) 91 07/09/17 14:15 77 41 103/60 (74) 91 07/09/17 14:15 77 41 103/60 (74) 91 07/09/17 14:02 79 32 90 07/09/17 14:00 72 07/09/17 14:00 78 41 100/58 (72) 90 07/09/17 14:00 78 41 100/58 (72) 90 07/09/17 14:00 71 41 100/58 (72) 90 07/09/17 14:00 78 41 100/58 (72) 90 07/09/17 14:00 78 41 100/58 (72) 90 07/09/17 14:00 78 41 100/58 (72) 90 07/09/17 13:00 69 18 109/66 (80) 07/09/17 12:00 72 07/09/17 12:00 98.6 69 18 100/58 (72) 97 I/O 07/09/17 07/09/17 07/09/17 07/10/17 07/10/17 07/10/17 07:00 15:00 23:00 07:00 15:00 23:00 Intake Total 320 ml 1050 ml Output Total 475 ml 750 ml Balance -155 ml 300 ml Intake Oral 320 ml 360 ml IV Total 690 ml Output Urine Total 475 ml 750 ml # Voids 1 3 Result Diagram: 07/10/17 0443 07/10/17 0443 Objective Remarks GENERAL: NAD SKIN: Warm and dry. HEAD: Normocephalic. EYES: No scleral icterus. No injection or drainage. NECK: Supple, trachea midline. No JVD or lymphadenopathy. CARDIOVASCULAR: Regular rate and rhythm without murmurs, gallops, or rubs. RESPIRATORY: Breath sounds equal bilaterally. No accessory muscle use. GASTROINTESTINAL: Abdomen soft, non-tender, nondistended. MUSCULOSKELETAL: No cyanosis, or edema. BACK: Nontender without obvious deformity. No CVA tenderness. A/P Problem List: (1) Non-ST elevation [place] (NSTEMI) ICD Code: I21.4 - Non-ST elevation (NSTEMI) myocardial infarction (2) Dilated cardiomyopathy ICD Code: I42.0 - Dilated cardiomyopathy Status: Chronic (3) CAD (coronary artery disease) ICD Code: I25.10 - Atherosclerotic heart disease of [place] coronary artery without angina pectoris Status: Chronic (4) Hyperlipidemia ICD Code: E78.5 - Hyperlipidemia, unspecified Status: Chronic Assessment and Plan 52-year-old male with Non-ST elevation [place] Currently on heparin drip Cardiology consulted s/p left heart catheterization and shows severe 3 vessel [place] CAD with patent ROLAND to LAD and good LAD to RCA collaterals. Vein graft to RCA occluded. EF 10% Continue beta-herbert, KODY inhibitor, aspirin Dilated cardiomyopathy EF 10% by cath. continue beta herbert, KODY-I Elevated Blood glucose HA1c pending and treat accordingly Hyperlipidemia Secondary to multiple side effects including myalgia, statin is contraindicated Tobacco abuse Tobacco counseling cessation provided DVT prophylaxis: Heparin Transfer [facility] Problem Qualifiers (1) CAD (coronary artery disease): Qualified Codes: I25.110 - Atherosclerotic heart disease of [place] coronary artery with unstable angina pectoris (2) Hyperlipidemia: Qualified Codes: E78.2 - Mixed hyperlipidemia Chapincito Kelley MD July 10, 2017 10:19
--- NOTE | 2017-07-10 10:26 | EKG ---
Date Performed: 07/09/2017 Time Performed: 22:05:33 PTAGE: 52 years EKG: Sinus rhythm POSSIBLE LEFT ATRIAL ENLARGEMENT LOW QRS VOLTAGE IN EXTREMITY LEADS MODERATE INTRAVENTRICULAR CONDUC TION DELAY ABNORMAL ECG PREVIOUS TRACING : 02/06/2010 07.22 Secondary abnormalities of intraventricular conduction but cannot exclude ischemia. The intraventricular conduction delay and ST-T wave changes are both new fro m the prior tracing. DOCTOR: Scott Kahn Interpretating Date/Time 07/10/2017 10:25:19
[2017-07-10] MEDS: INSULIN ASPART SUPPLEMENTAL SCALE SQ SCH ×3 (12:00→20:58)
[2017-07-10 15:26] LABS: HEMOGLOBIN A1C 8.5 % (4.3-6.0)
[2017-07-10] MEDS: ENALAPRIL MALEATE 2.5 MG TAB PO SCH (20:58)
[2017-07-10] MEDS ORDERED: ZOLPIDEM TARTRATE 5 MG TAB PO ONE (23:30)
[2017-07-11] VITALS: BP 114/59; PULSE 62; RESP 72; TEMP 98.3; O2SAT 98
[2017-07-11 02:00] VITALS: PULSE 60
[2017-07-11 04:00] VITALS: BP 96/47; PULSE 49; RESP 22; TEMP 98.3; O2SAT 97
[2017-07-11] MEDS: CHLORHEXIDINE GLUCONATE 2 % 1 PACK (2 CLOTHS)(taper/protocol) TOPICAL SCH (04:00)
[2017-07-11 06:00] VITALS: PULSE 64
[2017-07-11 08:00] VITALS: BP 133/64; PULSE 73; RESP 16; TEMP 97.8; O2SAT 97
[2017-07-11] MEDS: INSULIN ASPART SUPPLEMENTAL SCALE SQ SCH (08:00)
[2017-07-11] MEDS: ASPIRIN 325 MG TAB PO SCH (08:51)
[2017-07-11] MEDS: METOPROLOL TARTRATE 25 MG TAB PO SCH (08:52)
[2017-07-11] MEDS: SODIUM CHLORIDE 0.9% FLUSH 10 ML FLUSH IV FLUSH SCH (08:53)
[2017-07-11] MEDS ORDERED: METO25TA3 PO (11:15)
[2017-07-11] MEDS ORDERED: ENAL2.5T PO (11:15)
[2017-07-11] MEDS ORDERED: METF1000 PO (11:19)
[2017-07-11] MEDS ORDERED: GLIP10TA6 PO (11:19)
--- NOTE | 2017-07-11 11:20 | HHI.PR ---
Subjective Remarks Follow-up non-ST elevation [place] July 10, 2017-patient seen and examined, patient denies any chest pain, shortness of breath or heart palpitation. No acute event overnight. Status post left heart catheterization July 09, 2017 July 11, 2017-patient seen and examined, stable and no complaint. Ready for discharge home Objective Vitals Vital Signs Date Time Temp Pulse Resp B/P (MAP) Pulse Ox O2 Delivery O2 Flow Rate FiO2 07/11/17 08:00 73 07/11/17 08:00 97.8 73 16 133/64 (87) 97 07/11/17 06:00 64 07/11/17 04:00 98.3 49 22 96/47 (63) 97 07/11/17 04:00 49 07/11/17 02:00 60 07/11/17 00:00 98.3 62 72 114/59 (77) 98 07/11/17 00:00 62 07/10/17 22:09 97 Nasal Cannula 2.00 07/10/17 22:00 65 07/10/17 20:00 97.8 67 19 116/66 (83) 99 07/10/17 20:00 67 07/10/17 18:00 61 07/10/17 16:00 61 07/10/17 16:00 98.0 71 18 94/53 (67) 96 07/10/17 14:00 61 07/10/17 12:00 98.0 68 18 107/58 (74) 96 07/10/17 12:00 61 I/O 07/10/17 07/10/17 07/10/17 07/11/17 07/11/17 07/11/17 07:00 15:00 23:00 07:00 15:00 23:00 Intake Total 1050 ml 480 ml 400 ml Output Total 750 ml 800 ml 1150 ml Balance 300 ml -320 ml -750 ml Intake Oral 360 ml 480 ml 400 ml IV Total 690 ml Output Urine Total 750 ml 800 ml 1150 ml Stool Total 0 ml # Voids 3 5 # Bowel Movements 0 Result Diagram: 07/10/17 0443 07/10/17 044 Objective Remarks GENERAL: NAD SKIN: Warm and dry. HEAD: Normocephalic. EYES: No scleral icterus. No injection or drainage. NECK: Supple, trachea midline. No JVD or lymphadenopathy. CARDIOVASCULAR: Regular rate and rhythm without murmurs, gallops, or rubs. RESPIRATORY: Breath sounds equal bilaterally. No accessory muscle use. GASTROINTESTINAL: Abdomen soft, non-tender, nondistended. MUSCULOSKELETAL: No cyanosis, or edema. BACK: Nontender without obvious deformity. No CVA tenderness. A/P Problem List: (1) Non-ST elevation [place] (NSTEMI) ICD Code: I21.4 - Non-ST elevation (NSTEMI) myocardial infarction (2) Dilated cardiomyopathy ICD Code: I42.0 - Dilated cardiomyopathy Status: Chronic (3) CAD (coronary artery disease) ICD Code: I25.10 - Atherosclerotic heart disease of [place] coronary artery without angina pectoris Status: Chronic (4) Hyperlipidemia ICD Code: E78.5 - Hyperlipidemia, unspecified Status: Chronic Assessment and Plan 52-year-old male with Non-ST elevation [place] s/p heparin drip Cardiology consulted s/p left heart catheterization and shows severe 3 vessel [place] CAD with patent ROLAND to LAD and good LAD to RCA collaterals. Vein graft to RCA occluded. EF 10% Continue beta-herbert, KODY inhibitor, aspirin Dilated cardiomyopathy EF 10% by cath. continue beta herbert, KODY-I Diabetes 2 Resume metformin and glipizide HA1c 8 Hyperlipidemia Secondary to multiple side effects including myalgia, statin is contraindicated Tobacco abuse Tobacco counseling cessation provided DVT prophylaxis: Heparin Problem Qualifiers (1) CAD (coronary artery disease): Qualified Codes: I25.110 - Atherosclerotic heart disease of [place] coronary artery with unstable angina pectoris (2) Hyperlipidemia: Qualified Codes: E78.2 - Mixed hyperlipidemia Chapincito Kelley MD July 11, 2017 11:20
--- NOTE | 2017-07-11 11:21 | HHI.DS ---
Discharge Summary Admission Date July 09, 2017 at 06:50 Discharge Date: July 11, 2017 Admitting Diagnosis (1) Non-ST elevation [place] (NSTEMI) ICD Code: I21.4 - Non-ST elevation (NSTEMI) myocardial infarction (2) Dilated cardiomyopathy ICD Code: I42.0 - Dilated cardiomyopathy Status: Chronic (3) CAD (coronary artery disease) ICD Code: I25.10 - Atherosclerotic heart disease of [place] coronary artery without angina pectoris Status: Chronic (4) Hyperlipidemia ICD Code: E78.5 - Hyperlipidemia, unspecified Status: Chronic Procedures None Brief History - From Admission 52-year-old man with history of CAD, hyperlipidemia, hypertension and noncompliant with medical care presented to [place] ED last night for evaluation of an acute onset of substernal chest pain rated 8 out of 10 in intensity with radiation to bilateral jaws associated with shortness of breath without any palpitation, diaphoresis or nausea.. Patient reported the pain to be on and off and states soma initially improved with nitroglycerin for less than 30 minutes. A my exam this morning, patient reported improvement of symptoms. Chest x-ray in the ED was noted to be without any cardio pulmonary disease. Initial cardiac enzyme elevated to 1.4. Patient denies any GI bleed. CBC/BMP: 07/10/17 0443 07/10/17 0443 Significant Findings Laboratory Tests Test 07/09/17 07:30 07/09/17 10:01 07/09/17 16:55 07/10/17 04:43 Activated Partial Thromboplast Time 37.4 SEC (24.3-30.1) Troponin I 4.95 NG/ML (0.02-0.05) 4.98 NG/ML (0.02-0.05) Red Blood Count 4.15 MIL/MM3 (4.50-5.90) Platelet Count 123 TH/MM3 (150-450) Neutrophils (%) (Auto) 73.6 % (16.0-70.0) Random Glucose 131 MG/DL (74-106) Calcium Level 8.1 MG/DL (8.5-10.1) Estimat Glomerular Filtration Rate 83 ML/MIN (>89) Hemoglobin A1c 8.5 % (4.3-6.0) Cholesterol Level 408 MG/DL (120-200) LDL Cholesterol 349 MG/DL (0-99) HDL Cholesterol 29.2 MG/DL (40.0-60.0) PE at Discharge GENERAL: NAD SKIN: Warm and dry. HEAD: Normocephalic. EYES: No scleral icterus. No injection or drainage. NECK: Supple, trachea midline. No JVD or lymphadenopathy. CARDIOVASCULAR: Regular rate and rhythm without murmurs, gallops, or rubs. RESPIRATORY: Breath sounds equal bilaterally. No accessory muscle use. GASTROINTESTINAL: Abdomen soft, non-tender, nondistended. MUSCULOSKELETAL: No cyanosis, or edema. BACK: Nontender without obvious deformity. No CVA tenderness. Hospital Course While in hospital, patient was treated for: Non-ST elevation [place] s/p heparin drip Cardiology consulted s/p left heart catheterization and shows severe 3 vessel [place] CAD with patent ROLAND to LAD and good LAD to RCA collaterals. Vein graft to RCA occluded. EF 10% Treated with beta-herbert, KODY inhibitor, aspirin Dilated cardiomyopathy EF 10% by cath. continue beta herbert, KODY-I Diabetes 2 Resume metformin and glipizide HA1c 8 Hyperlipidemia Secondary to multiple side effects including myalgia, statin is contraindicated Tobacco abuse Tobacco counseling cessation provided DVT prophylaxis: Heparin Pt Condition on Discharge: Good Discharge Disposition: Discharge Home Discharge Time: <= 30 minutes Discharge Instructions DIET: Follow Instructions for: Heart Healthy Diet Activities you can perform: Regular-No Restrictions Follow up Referrals: Cardiology PCP Follow-up - 1 Week New Medications: Glipizide (Glipizide) 10 Mg Tab 10 MG PO BIDAC for Blood Sugar Management, #60 TAB 3 Refills Take 30 minutes before a meal Metformin (Metformin) 1,000 Mg Tab 1000 MG PO BIDPC for Blood Sugar Management, #60 TAB 3 Refills Enalapril (Enalapril) 2.5 Mg Tab 2.5 MG PO DAILY@2100 for Blood Pressure Management, #30 TAB 3 Refills Metoprolol Tartrate (Metoprolol Tartrate) 25 Mg Tab 12.5 MG PO Q12HR for Blood Pressure Management, #60 TAB 3 Refills Continued Medications: Aspirin (Aspirin 325 mg) 325 Mg Tab 325 MG PO DAILY Citalopram Hydrobromide (Celexa) 20 Mg Tab 30 MG PO DAILY Ergocalciferol 50,000 Units (Vitamin D / Drisdol 50,000 Units) 50,000 Units Cap 1 CAP PO WEEKLY Glipizide (Glucotrol) 10 Mg Tab 10 MG PO BID Metformin XR 24 HR (Glucophage XR 24 HR) 500 Mg Tab 1000 MG PO BID Omnmy-6-Iadv Ethyl Esters (Lovaza) 1 Gm Cap 2 GM PO BID Rosuvastatin Calcium (Crestor) 10 Mg Tab 10 MG PO DAILY Trazodone Hcl (Desyrel) 50 Mg Tab 50 MG PO HS Discontinued Medications: Hydrocodone-Acetaminophen (Lortab 10/500) 10 Mg/500 Mg Tab 1 TAB PO Q4HPRN FOR PAIN Isosorbide Mononitrate (Imdur) 30 Mg Tab 30 MG PO DAILY Methocarbamol (Methocarbamol) 500 Mg Tab 750 MG PO TID Metoprolol Tartrate 25 mg (Metoprolol Tartrate 25 mg) 25 Mg Tab 25 MG PO BID Warfarin Sodium (Coumadin 5 mg) 5 Mg Tab 5 MG PO DAILY Zolpidem Tartrate (Ambien) 10 Mg Tab 10 MG PO HSPRN INSOMNIA Chapincito Kelley MD July 11, 2017 11:21
[2017-07-16] MEDS ORDERED: FENO1TAB46 PO (02:16)
== END 2017-07-11 12:00 | disposition home or self-care (01) | DRG 281 ==
LOC: NEDDLT 06:40 → HIME 06:50
PROVIDERS: ADMIT Hospitalist; ATTEND Hospitalist
PROC: B2151ZZ Fluoroscopy of Left Heart using Low Osmolar Contrast (ICD-10-PCS; 2017-07-09)
PROC: B2111ZZ Fluoroscopy of Multiple Coronary Arteries using Low Osmolar Contrast (ICD-10-PCS; 2017-07-09)
PROC: B2131ZZ Fluoroscopy of Multiple Coronary Artery Bypass Grafts using Low Osmolar Contrast (ICD-10-PCS; 2017-07-09)
PROC: B2181ZZ Fluoroscopy of Left Internal Mammary Bypass Graft using Low Osmolar Contrast (ICD-10-PCS; 2017-07-09)
PROC: 4A023N7 Measurement of Cardiac Sampling and Pressure, Left Heart, Percutaneous Approach (ICD-10-PCS; principal; 2017-07-09 11:00)
DX: I21.4 Non-ST elevation (NSTEMI) myocardial infarction (principal); I42.0 Dilated cardiomyopathy; E11.65 Type 2 diabetes mellitus with hyperglycemia; I10 Essential (primary) hypertension; I25.110 Atherosclerotic heart disease of native coronary artery with unstable angina pectoris; E78.2 Mixed hyperlipidemia; F17.210 Nicotine dependence, cigarettes, uncomplicated; I25.700 Atherosclerosis of coronary artery bypass graft(s), unspecified, with unstable angina pectoris; Z95.1 Presence of aortocoronary bypass graft; Z95.5 Presence of coronary angioplasty implant and graft; Z82.49 Family history of ischemic heart disease and other diseases of the circulatory system; Z91.19 Patient's noncompliance with other medical treatment and regimen; Z79.84 Long term (current) use of oral hypoglycemic drugs
CPT/HCPCS: 71045; 80048; 80061; 82550; 82552; 82948; 83036; 83735; 83880; 84484; 85002; 85025; 85610; 85730; 87641; 93005; 93459; 93567; 96374; 96375; 99152; 99153; C1769; C1893; J1644; J1815; J2250; J2405; J3010; J7030; Q0163; Q9967

== ENCOUNTER 2017-07-16 05:35 | Observation (INO) | payer SELFPAY ==
[2017-07-16] VITALS (17 sets, daily range): BP systolic 105–115; BP diastolic 48–66; PULSE 55–72; RESP 18–22; TEMP 97.6–98.4; O2SAT 93–99
[~2017-07-16] VITALS: Ht 177.8 cm; Wt 70.5 kg
[~2017-07-16 05:35] MED LIST changes: -AMBI10TA PO; -COUM5TAB PO; +ENAL2.5T PO; +FENO1TAB46 PO; +GLIP10TA6 PO; -HYDR10TA16 PO; -IMDU30TA PO; +METF1000 PO; -METH500T3 PO; -METO25 PO; +METO25TA3 PO
--- NOTE | 2017-07-16 05:51 | PD ---
Physical Exam Narrative General: The patient is a well-developed well-nourished male in no acute distress. Head and Neck exam: Head is normocephalic atraumatic. Eyes: EOMI, pupils are equal round and reactive to light. Nose: Midline septum with pink mucous membranes Mouth: Dentition unremarkable. Moist mucus membranes. Posterior oropharynx is not erythematous. No tonsillar hypertrophy. Uvula midline. Airway patent. Neck: No palpable lymphadenopathy. No nuchal rigidity. No thyromegaly. Cardiovascular: Regular rate and rhythm without murmurs, gallops, or rubs. No pulse deficit to the extremities on simultaneous auscultation and palpation of his radial artery. Lungs: Clear to auscultation bilaterally. No wheezes, rhonchi, or rales. Abdomen: Soft, without tenderness to palpation in all 4 quadrants of the abdomen. No guarding, rebound, or rigidity. Normal bowel sounds are audible. No tenderness on palpation of McBurney's point. Extremities: No clubbing, cyanosis, or edema. 2+ pulses in all 4 extremities. No calf tenderness on palpation. Neurologic Exam: Grossly nonfocal. Skin Exam: No rash noted. Intact skin that is warm and dry. MDM Medical Record Reviewed: Yes Supervised Visit with DAT: No Narrative Course During the course of the patient's emergency department visit, the patient's history, examination, and differential diagnosis were reviewed with the patient. The patient was placed on a quality assurance monitor final with oximetry and frequent blood pressure monitoring. The patient had IV access obtained and blood work sent for analysis prior to arrival. The patient was accepted in transfer by the [facility] physician, Dr. Shultz. The patient was roomed in the emergency department as there was no inpatient bed available at this time. The patient's electronic medical record was reviewed including the laboratory studies that were previously done. The patient reports to me that at 1 AM he had onset of worsening shortness of breath. He reports that he has had a cough recently. He denies having any lower extremity edema. The patient has a prior history of coronary artery disease, hypertension, and remote history of pulmonary embolism. At the other facility, the patient received Lasix 80 mg IV, Zofran 4 mg IV for nausea. The patient reports feeling improved on arrival. The patient has been diuresing. The patient's laboratory studies were reviewed and remarkable for white count of 12.3, hemoglobin 13.3, platelets 154 with 79.2 neutrophils, CMP is remarkable for a glucose of 144, troponin I 0.19, BNP 1140, PT PTT unremarkable Radiology studies were reviewed and remarkable for a chest x-ray that shows widespread diffuse interstitial lung disease, no evidence of pneumothorax. Review of the electronic medical record reveals that the patient was just admitted to the hospital for a non-STEMI. The patient was noted to have on cardiac catheterization is severely diminished ejection fraction between 10 and 15% with global hypokinesis and severe three-vessel coronary artery disease with collaterals noted and occluded prior coronary graft. The patient was admitted to the hospital in stable condition and [facility] Diagnosis Primary Impression: Congestive heart failure Qualified Codes: I50.23 - Acute on chronic systolic (congestive) heart failure Admitting Information Admitting Physician Requests: Admit Yanni Kahn MD July 16, 2017 05:51
[2017-07-16] MEDS: ENALAPRIL MALEATE 2.5 MG TAB PO SCH ×2 (09:00→21:15)
[2017-07-16] MEDS ORDERED: SODIUM CHLORIDE 0.9% FLUSH 10 ML FLUSH IV FLUSH SCH (09:00)
[2017-07-16] MEDS ORDERED: LACTULOSE SYRUP 20 GM/30 ML CUP PO PRN (09:00)
[2017-07-16] MEDS ORDERED: MAGNESIUM HYDROXIDE SUSP 30 ML CUP PO PRN (09:00)
[2017-07-16] MEDS ORDERED: SENNOSIDES 8.6 MG TAB PO PRN (09:00)
[2017-07-16] MEDS ORDERED: ONDANSETRON HCL 4 MG/2 ML VIAL IVP PRN (09:00)
[2017-07-16] MEDS ORDERED: BISACODYL 10 MG SUPP RECTAL PRN (09:00)
[2017-07-16] MEDS ORDERED: NALOXONE HCL 0.4 MG/ML AMP IV PUSH PRN (09:00)
[2017-07-16] MEDS: DOCUSATE SODIUM 50 MG/SENNA 8.6 MG TAB PO SCH ×2 (09:00→20:25)
[2017-07-16] MEDS ORDERED: SODIUM CHLORIDE 0.9% FLUSH 10 ML FLUSH IV FLUSH PRN ×2 (09:00)
[2017-07-16] MEDS ORDERED: PILL SPLITTER OTHER PRN (09:45)
[2017-07-16] MEDS: ASPIRIN 81 MG CHEW TAB CHEW SCH (09:54)
[2017-07-16] MEDS: POTASSIUM CHLORIDE 20 MEQ CONTROLLED RELEASE TAB PO SCH ×2 (09:54→20:25)
[2017-07-16] MEDS: METOPROLOL TARTRATE 25 MG TAB PO SCH ×2 (09:54→20:26)
[2017-07-16] MEDS: FUROSEMIDE 40 MG/4 ML VIAL IVP SCH ×2 (09:55→16:59)
[2017-07-16] MEDS: SODIUM CHLORIDE 0.9% FLUSH 10 ML FLUSH IV FLUSH SCH ×2 (09:55→21:15)
[2017-07-16] MEDS: ENOXAPARIN SODIUM 40 MG/0.4 ML SYRINGE SQ SCH (09:56)
--- NOTE | 2017-07-16 11:04 | HHI.HP ---
HPI Service [facility] Hospitalists Primary Care Physician No Primary Care Physician Admission Diagnosis Diagnoses: Chief Complaint: sob Travel History International Travel<30 Days: No Contact w/Intl Traveler <30 Da: No Traveled to Known Affected Are: No History of Present Illness 52-year-old man with history of CAD/[place], cardiomyopathy ejection fraction 10% on recent cardiac catheterization, diabetes, hyperlipidemia, hypertension, anxiety , GERD, and noncompliant with medical care presented to [place] ED last night with complaints of sob. The patient was previously admitted earlier this month with shortness of breath /chest pain. Patient underwent cardiac catheterization was found to have severe three-vessel coronary artery disease with collateral circulation, severe decreased LV systolic function, vein graft RCA. He was discharged home with continued medical management including metoprolol and enalapril. Patient presented to [facility] emergency department in [place] on 07/16/17 with increased shortness of breath. Says he did not follow with cardiology yet as OP and doesn't have an established cardiology doctor. Initial evaluation revealed chest x-ray with diffuse interstitial lung disease. BNP is noted elevated at 1140, troponin elevated 0.19, 0.17 sequentially. Patient was transferred from [place] emergency department to [facility] with CHF exacerbation. The patient received a total of 80 mg IV lasix in the ED, and was started on lasix 40 mg IVP bid. I spoke with Dr Walls and Dr Cyr cardiology. . Review of Systems ROS Limitations: Clinical Condition Except as stated in HPI: all other systems reviewed are Neg Past Family Social History Past Medical History CAD Diabetes. Hyperlipidemia. Questionable remote history of pulmonary embolism. Hypertension. Nonsustained ventricular tachycardia demonstrated by monitoring in the hospital 10/2009. Past Surgical History Coronary artery bypass grafting 11/01/2008. Sternal re-wiring, open reduction and internal fixation of multiple sternal fractures 11/10/2008. Multiple sternal operations between October and February 2010, including sternal wire removal, debridement of skin, subcutaneous tissue and muscle, bilateral pectoralis flaps. Allergies: Coded Allergies: tetanus toxoid, adsorbed (Unverified Allergy, Severe, Edema, 07/16/17) tetanus immune globulin (Unverified Allergy, Unknown, 07/16/17) Family History CAD, hypertension, diabetes Social History Patient smokes 8-10 cigarettes per day, says he quit recently, denies alcohol or illicit drug intake. Physical Exam Vital Signs Vital Signs Date Time Temp Pulse Resp B/P (MAP) Pulse Ox O2 Delivery O2 Flow Rate FiO2 07/16/17 07:45 98.4 55 22 109/56 (73) 93 07/16/17 06:23 61 20 110/56 (74) 98 Nasal Cannula 2.00 07/16/17 05:42 98.1 61 18 108/54 (72) 98 Physical Exam GENERAL: This is a 52 yo male appearing older than the stated age, chronically ill, in bed with sob , in some distress. SKIN: No rashes, ecchymoses or lesions. Cool and dry. HEAD: Atraumatic. Normocephalic. No temporal or scalp tenderness. EYES: Pupils equal round and reactive. Extraocular motions intact. No scleral icterus. No injection or drainage. ENT: Nose without bleeding, purulent drainage or septal hematoma. Throat without erythema, tonsillar hypertrophy or exudate. Uvula midline. Airway patent. NECK: Trachea midline. No JVD or lymphadenopathy. Supple, nontender, no meningeal signs. CARDIOVASCULAR: Regular rate and rhythm. RESPIRATORY: Bibasilar crackles. Decreased breath sounds bilaterally. GASTROINTESTINAL: Abdomen soft, non-tender, nondistended. No hepato-splenomegaly , or palpable masses. No guarding. MUSCULOSKELETAL: Extremities without clubbing, cyanosis. Bilateral LE edema. No joint tenderness, effusion, or edema noted. No calf tenderness. Negative Homans sign bilaterally. NEUROLOGICAL: Awake and alert. Cranial nerves II through XII intact. Motor and sensory grossly within normal limits. Five out of 5 muscle strength in all muscle groups. Normal speech. Caprini VTE Risk Assessment Caprini VTE Risk Assessment: Mod/High Risk (score >= 2) Caprini Risk Assessment Model Point Value = 1 Point Value = 2 Point Value = 3 Point Value = 5 Age 41-60 Minor surgery BMI > 25 kg/m2 Swollen legs Varicose veins or History of unexplained or recurrent spontaneous Oral contraceptives or hormone replacement Sepsis (< 1 month) Serious lung disease, including pneumonia (< 1 month) Abnormal pulmonary function Acute myocardial infarction Congestive heart failure (< 1 month) History of inflammatory bowel disease Medical patient at bed rest Age 61-74 Arthroscopic surgery Major open surgery (> 45 min) Laparoscopic surgery (> 45 min) Malignancy Confined to bed (> 72 hours) Immobilizing plaster cast Central venous access Age >= 75 History of VTE Family history of VTE Factor V Leiden Prothrombin 25126A Lupus anticoagulant Anticardiolipin antibodies Elevated serum homocysteine Heparin-induced thrombocytopenia Other congenital or acquired thrombophilia Stroke (< 1 month) Elective arthroplasty Hip, pelvis, or leg fracture Acute spinal cord injury (< 1 month) Prophylaxis Regimen Total Risk Factor Score Risk Level Prophylaxis Regimen 0-1 Low Early ambulation 2 Moderate Order ONE of the following: *Sequential Compression Device (SCD) *Heparin 5000 units SQ BID 3-4 Higher Order ONE of the following medications: *Heparin 5000 units SQ TID *Enoxaparin/Lovenox 40 mg SQ daily (WT < 150 kg, CrCl > 30 mL/min) *Enoxaparin/Lovenox 30 mg SQ daily (WT < 150 kg, CrCl > 10-29 mL/min) *Enoxaparin/Lovenox 30 mg SQ BID (WT < 150 kg, CrCl > 30 mL/min) AND/OR *Sequential Compression Device (SCD) 5 or more Highest Order ONE of the following medications: *Heparin 5000 units SQ TID (Preferred with Epidurals) *Enoxaparin/Lovenox 40 mg SQ daily (WT < 150 kg, CrCl > 30 mL/min) *Enoxaparin/Lovenox 30 mg SQ daily (WT < 150 kg, CrCl > 10-29 mL/min) *Enoxaparin/Lovenox 30 mg SQ BID (WT < 150 kg, CrCl > 30 mL/min) AND *Sequential Compression Device (SCD) Assessment and Plan Assessment and Plan 52-year-old man with Dilated cardiomyopathy/ systolic CHF with exacerbation, patient with severely reduced EF of 10% by recent cardiac cath. BNP elevated on admission Elevated trops poss 2/2 demand ischemia from CHF exacerbation EF 10% by cath. continue beta herbert, KODY-I Received 80 mg IV lasix in the ED Start lasix 40 mg IV bid Monitor closely kidney function Monitor UOP Plan for 2D ECHO Was seen by Dr Walls on last admission Consult Dr Walls. Spoke with Dr Walls as patient is noted with change in status. He is more sob and diaphoretic. There is nothing to revasculate per previous cath per Dr Walls. Also Dr Payan will see the patient. Called Dr Payan cardio EKG reviewed and discussed with Dr Payan. EKG however at baseline. Dr Payan will evaluate the patient and will consider starting Milrinone IV drip. Admit to [facility] for poss milrinone IV drip and for close monitoring. EKG ordered stat Telemetry Patient is deteriorating will consult palliative care ABG start reviewed and reassuring. Monitor closely. CAD/ Recent Non-ST elevation [place] s/p recent cardiac cath by Dr Walls cardio s/p recent left heart catheterization and shows severe 3 vessel [place] CAD with patent ROLAND to LAD and good LAD to RCA collaterals. Vein graft to RCA occluded. EF 10% Continue beta-herbert, KODY inhibitor, aspirin Diabetes mellitus type 2, uncontrolled with A1c of 8 Hold metformin and glipizide can restart at DC. Accuchecks , ISS Recent HA1c 8 Monitor BS Hyperlipidemia - Secondary to multiple side effects including myalgia, statin is contraindicated Tobacco use - Tobacco counseling cessation. Patient says he quit recently however DVT prophylaxis: scd/teds/lovenox sq Discussed Condition With pt, nurse Alba Cox MD July 16, 2017 11:04
[2017-07-16] MEDS ORDERED: MORPHINE SULFATE 4 MG/ML INJ IV PUSH PRN (12:30)
--- NOTE | 2017-07-16 15:29 | PD.CONS ---
Consult Service Palliative Care . Consult Requested By Dr. Cox . Primary Care Physician No Primary Care Physician . Reason for Consultation a. To assist with evaluation and management of symptoms including: Pain, shortness of breath. b. To assist medical decision maker(s) with: better understanding of current medical conditions; weighing benefits/burdens of medical treatment options; making medical treatment decisions. . HPI History of Present Illness Mr. Torres is a 52-year-old male with past medical history of coronary artery disease, CHF, arthritis, anxiety, depression, hyperlipidemia, GERD, angina, [place], seizures, diabetes and ejection fraction 10% on recent cardiac catheterization. Patient was previously admitted to [facility] 5 1-05/26 with shortness of breath/chest pain. Patient underwent cardiac catheterization was found to have severe three-vessel coronary artery disease with collateral circulation, severe decreased LV systolic function, vein graft RCA. He was discharged home with continued medical management including metoprolol and enalapril. Patient presented to [facility] emergency department in [place] on 07/16/17 with increased shortness of breath. Initial evaluation revealed chest x-ray with diffuse interstitial lung disease. BNP 1140, WBC 12.3, troponin 0 0.19, 0.17 sequentially. Cholesterol elevated 408, LDL 349 and HDL 29.2. Patient was transferred from [place] emergency department to [facility] with CHF exacerbation. He is feeling less SOB at the time of my visit on [place] oxygen. He tells tank inspector, Dr. Cyr told him just prior to my visit "there is nothing more they can do for me." He says he was told he is not going to get a "new heart." He verbalizes years of frustrations with the system (disability, SS and Medicaid). He is concerned that his SOTamiko will not even be able to afford to bury him. I advised of services available to assist when a family need assistance. Lengthy conversation with patient. Asked if he has written advanced directives, he does not. Offered to help him implement designation of healthcare surrogate , explained his mother would be his legal healthcare proxy if he does not designate someone. Discussed briefly CODE STATUS, he seems overwhelmed by the consideration of this conversation. We talked about heart disease, CHF, EF 10% and likely limited life expectancy. I advised how hospice services may benefit him. He becomes appropriately tearful, upset by conversation and thought that he is in a position to consider hospice. He tells me he has had "friends that needed hospice and it isn't good." He was quite emotional and angry and asked me if I "have other patients to see." I excused myself, provided my cell phone number. . . Function/Cognitive Trajectory Has been disabled since CABG. Was ambulating at home with minimal shortness of breath until earlier today. Decreased appetite. . Review of Systems Constitutional: COMPLAINS OF: Fatigue, Change in appetite (Decreased), Generalized weakness Endocrine: DENIES: Heat/cold intolerance, Polydipsia, Polyuria, Polyphagia Ears, nose, mouth, throat: DENIES: Tinnitus, Hearing loss, Vertigo, Nasal discharge, Oral lesions, Throat pain, Hoarseness, Ear Pain, Running Nose, Epistaxis, Sinus Pain, Toothache, Odynophagia Respiratory: COMPLAINS OF: Shortness of breath Cardiovascular: COMPLAINS OF: Chest pain, Dyspnea on Exertion Gastrointestinal: COMPLAINS OF: Anorexia, DENIES: Abdominal pain, Black stools , Bloody stools, Constipation, Diarrhea, Nausea, Vomiting, Difficulty Swallowing , Dyspepsia or heartburn, Excessive gas, Bloating, Vomiting blood Genitourinary: DENIES: Sexual dysfunction, Urinary frequency, Urinary incontinence, Urgency, Hematuria, Dysuria, Nocturia, Penile Discharge, Testicular Pain, Testicular Swelling, Hesitancy, Dribbling, Decreased stream Musculoskeletal: COMPLAINS OF: Back pain Integumentary: DENIES: Abnormal pigmentation, Nail changes, Pruritus, Rash, Nodules, Tumors, Excessive dryness, Non-healing sores Hematologic/Lymphatics: COMPLAINS OF: Bruising Immunologic/Allergic: DENIES: Eczema, Urticaria Psychiatric: COMPLAINS OF: Anxiety, Depression Past Family Social History Coded Allergies: tetanus toxoid, adsorbed (Unverified Allergy, Severe, Edema, 07/16/17) tetanus immune globulin (Unverified Allergy, Unknown, 07/16/17) Past Medical History CAD Hypertension Diabetes CHF Arthritis Depression Anxiety Elevated cholesterol-intolerant to statins myalgia GERD Angina [place] Seizure 2005 Pulmonary embolism 2008 Nonsustained ventricular tachycardia demonstrated by monitoring in the hospital 10/2009. . Past Surgical History Coronary artery bypass grafting 11/01/2008. Sternal re-wiring, open reduction and internal fixation of multiple sternal fractures 11/10/2008. Multiple sternal operations between October and February 2010, including sternal wire removal, debridement of skin, subcutaneous tissue and muscle, bilateral pectoralis flaps. . Reported Medications Reported Meds & Active Scripts Active Enalapril (Enalapril Maleate) 2.5 Mg Tab 2.5 Mg PO DAILY@2100 Metoprolol Tartrate 25 Mg Tab 12.5 Mg PO Q12HR Reported Fenofibrate 40 Mg Tab 40 Mg PO DAILY . Current Medications Medications (Trade) Dose Ordered Sig/Bonita Route Start Time Stop Time Status Last Admin (Lasix Inj) 40 mg BID@18 IVP 07/16/17 09:00 07/16/17 09:55 (KCl) 20 meq BID PO 07/16/17 09:00 07/16/17 09:54 (Aspirin Chew) 81 mg DAILY CHEW 07/16/17 09:00 07/16/17 09:54 (Vasotec) 2.5 mg BID PO 07/16/17 09:00 (Lovenox Inj) 40 mg Q24H SQ 07/16/17 10:00 07/16/17 09:56 (NS Flush) 2 ml UNSCH PRN IV FLUSH 07/16/17 09:00 (NS Flush) 2 ml BID IV FLUSH 07/16/17 09:00 07/16/17 09:55 (Tylenol) 650 mg Q4H PRN PO 07/16/17 09:00 (Zofran Inj) 4 mg Q6H PRN IVP 07/16/17 09:00 (Restoril) 15 mg HS PRN PO 07/16/17 21:00 (Narcan Inj) 0.4 mg UNSCH PRN IV PUSH 07/16/17 09:00 (Nhung-Colace) 1 tab BID PO 07/16/17 09:00 (Milk Of Magnesia Liq) 30 ml Q12H PRN PO 07/16/17 09:00 (Senokot) 17.2 mg Q12H PRN PO 07/16/17 09:00 (Dulcolax Supp) 10 mg DAILY PRN RECTAL 07/16/17 09:00 (Lactulose Liq) 30 ml DAILY PRN PO 07/16/17 09:00 (Lopressor) 12.5 mg Q12HR PO 07/16/17 09:00 07/16/17 09:54 (Pill Splitter) 1 ea UNSCH PRN OTHER 07/16/17 09:45 (Morphine Inj) 2 mg Q4HR PRN IV PUSH 07/16/17 12:30 Family History Father had significant early onset heart disease IN age 30 multiple coronary artery bypass surgeries age 61. Mother alive age 68 with vascular issues. One living sister no history of heart disease. . Substance Use Tobacco: Smokes half pack per day. Alcohol: None. Prescription med abuse: None Illicits: Positive marijuana. Psychosocial History Lives with his significant other, Leah Johnson. No children. Disabled. . Spiritual/Cultural Factors Declines wireless watcher support at this time. . Living Will: Never completed Health Care Surrogate: Never completed Durable Power of Frame Tender: Never completed Health Care Surrogate(s): Patient is currently capacitated to make his own healthcare decisions. Offered to assist with completion of written advance directives, designation of healthcare surrogate. Patient is considering. . Ethical and Legal Issues Patient is currently capacitated to make his own healthcare decisions. Offered to assist with completion of written advance directives, designation of healthcare surrogate. Patient is considering. According to [place] statutes, in the absence of written advance directives, healthcare proxy decision making would fall to the patient's mother. . Physical Exam Vital Signs Date Time Temp Pulse Resp B/P (MAP) Pulse Ox O2 Delivery O2 Flow Rate FiO2 07/16/17 13:40 98.2 61 18 115/63 (80) 96 07/16/17 11:44 98.2 62 22 110/57 (74) 93 07/16/17 07:45 98.4 55 22 109/56 (73) 93 07/16/17 06:23 61 20 110/56 (74) 98 Nasal Cannula 2.00 07/16/17 05:42 98.1 61 18 108/54 (72) 98 07/16/17 07/17/17 19:00 07:00 Output Total 500 ml Balance -500 ml Output Urine Total 500 ml Exam CONSTITUTIONAL/GENERAL: This is a thin patient, in no apparent distress. TUBES/LINES/DRAINS: Oxygen via nasal cannula, PIV. SKIN: No jaundice, rashes, or lesions. Ecchymoses on upper extremities. No wounds seen anteriorly. Skin temperature appropriate. Not diaphoretic. HEAD: Atraumatic. Normocephalic. EYES: Pupils equal and round and reactive. ENT: Hearing grossly normal. Nose without bleeding or purulent drainage. Throat without visible erythema, exudates, masses, or lesions. NECK: Trachea midline. CARDIOVASCULAR: Regular rate and rhythm without murmurs. RESPIRATORY/CHEST: Symmetric, unlabored respirations. Scattered crackles. GASTROINTESTINAL: Abdomen soft, non-tender, nondistended. No guarding. Bowel sounds present. GENITOURINARY: Without palpable bladder distension. MUSCULOSKELETAL: Extremities with edema. LYMPHATICS: No palpable cervical or supraclavicular adenopathy. NEUROLOGICAL: Awake and alert. Motor and sensory grossly within normal limits. Follows commands. Cognitively sharp. Moves all extremities. PSYCHIATRIC: Tearful with conversation, becomes angry with situation, though remains quite pleasant. . Diagnostic Tests Laboratory Laboratory Tests Test 07/16/17 12:28 Troponin I 0.17 NG/ML (0.02-0.05) Patient/Family Conference Present at Family Conference: Spoke with patient at bedside. Also present CHELE Hansen. . Family Conference Time (mins): 60 Family Conference Location: Bedside Issues Discussed: * Palliative care role, purpose, approach * Additional medical, psychosocial, and spiritual history * Patients general health, functional status, and cognitive changes in the months leading up to the current hospitalization * Patient/family understanding of the current medical problems * Patient/family understanding of prognosis * Patients goals of care as best understood from advance directives and/or conversations and/or values * Current medical treatment options and benefits/burdens of those options * Likely scenarios comparing ongoing aggressive care with a transition to comfort measures only * Questions answered to the best of my ability * Palliative care contact information provided Goals remain aggressive at this time. Considering advance directives. Assessment and Plan Disease Oriented Problem List: (1) Congestive heart failure (2) Dilated cardiomyopathy (3) CAD (coronary artery disease) (4) Hyperlipidemia Symptom Scale: (1) Pain 0-10 Scale: 0 (2) Dyspnea 0-10 Scale: 3 Pertinent Non-Medical Issues Psychosocial: Lives with his significant other, Leah. No children. Spiritual: Declines wireless watcher support. Legal:Patient is currently capacitated to make his own healthcare decisions. Offered to assist with completion of written advance directives, designation of healthcare surrogate. Patient is considering. According to [place] statutes, in the absence of written advance directives, healthcare proxy decision making would fall to the patient's mother. Ethical issues impacting care: No known concerns at this time. . Important Contacts * Leah Torres, mother: [phone] * Leah Johnson, significant other: [phone] . Prognosis Mr. Torres is an unfortunate 52-year-old male with severe coronary artery disease and severe cardiomyopathy EF 10%, patient was admitted with CHF exacerbation. Overall prognosis is poor. Hospice appropriate if goals are comfort oriented. . Code Status: Full Code Plan * Decision Maker: Patient is currently capacitated to make his own healthcare decisions. Offered to assist with completion of written advance directives, designation of healthcare surrogate. Patient is considering. According to [place] statutes, in the absence of written advance directives, healthcare proxy decision making would fall to the patient's mother. * FULL CODE -patient considering * Lengthy conversation with patient. Asked if he has written advanced directives , he does not. Offered to help him implement designation of healthcare surrogate, explained his mother would be his legal healthcare proxy if he does not designate someone. Discussed briefly CODE STATUS, he seems overwhelmed by the consideration of this conversation. We talked about heart disease, CHF, EF 10% and likely limited life expectancy. I advised how hospice services may benefit him. He becomes appropriately tearful, upset by conversation and thought that he is in a position to consider hospice. He tells me he has had "friends that needed hospice and it isn't good." He was quite emotional and angry and asked me if I "have other patients to see." I excused myself, provided my cell phone number. * SYMPTOMS: Pain: Denies pain during my visit. We will continue to monitor. Dyspnea: Secondary to congestive heart failure, coronary artery disease on oxygen via nasal cannula. Shortness of breath has improved with current medical management. * Palliative care number provided. * Palliative care will continue to follow throughout hospital course to assist with symptom management and clarification of medical treatment goals as needed. . Thank you for the opportunity to participate in the care of Mr. Torres. Attestation To help prompt me to consider important information that might be impacting today's encounter and assessment, information from prior notes written by myself or my colleagues may have been "brought forward" into today's note. My signature on this note, however, is an attestation that I personally performed the exam, history, and/or decision-making noted today, and, unless otherwise indicated, the interactions with patient, family, and staff as well as the review of records all occurred today. I also attest that the listed assessment and stated plan reflect my best clinical judgment today based on the combination of historical information, prior notes, and today's exam/ interactions. When time spent is documented, it refers only to time spent today by the signer, or if indicated, combined time spent today by collaborating physician/nurse practitioner. Kate Schneider July 16, 2017 15:29
--- NOTE | 2017-07-16 17:12 | EKG ---
Date Performed: 07/16/2017 Time Performed: 12:21:28 PTAGE: 52 years EKG: Sinus rhythm LEFT ATRIAL ENLARGEMENT LOW QRS VOLTAGE IN EXTREMITY LEADS ANTERIOR MYOCARDIAL INFARCTION ACUTE M I INTERPRETATION BASED ON A DEFAULT AGE OF 40 YEARS PREVIOUS TRACING : 07/16/2017 12.19 DOCTOR: Amandeep Wray Interpretating Date/Time 07/16/2017 17:11:01
[2017-07-16] MEDS ORDERED: GLIP10TA6 PO (20:59)
[2017-07-16] MEDS ORDERED: DEXTROSE 50% IN WATER 50 ML VIAL(D50) IV PUSH PRN (21:15)
[2017-07-16] MEDS ORDERED: GLUCAGON 1 MG/ML VIAL OTHER PRN (21:15)
[2017-07-17] VITALS (29 sets, daily range): BP systolic 111–144; BP diastolic 63–78; PULSE 56–94; RESP 16–18; TEMP 97.8–98.6; O2SAT 97–99
--- NOTE | 2017-07-17 00:36 | MB ---
cc: Michael Cyr DO DATE: 07/16/2017 REASON FOR CONSULTATION: Shortness of breath, elevated troponin. HISTORY OF PRESENT ILLNESS: Kiko Torres is a pleasant 52-year-old male who presented to [facility] Emergency Room on 07/16/2017 due to shortness of breath. The patient was recently here around a month ago, and at that time underwent cardiac catheterization. He was found to have extensive coronary artery disease and ejection fraction of 10%. He was discharged home on medical management as it was not felt that there was any revascularization options. He states that over the past 2 days, he has been getting more significantly short of breath. This has been worse over the past 3-4 hours and so he presented to the emergency room. He denies any chest pain. He has been somewhat diaphoretic. While in the [place] [facility], he received 80 of Lasix and then received another 40 of IV Lasix this morning. In seeing him, he states that he is feeling better and his shortness of breath is less. He still denies any chest pain. PAST MEDICAL HISTORY: 1. Extensive coronary artery disease. 2. Diabetes. 3. Systolic heart failure with an ejection fraction of 10%. 4. Hyperlipidemia. 5. Hypertension. 6. History of nonsustained VT (10/2009). PAST SURGICAL HISTORY: 1. Coronary artery bypass grafting (11/01/2008) with ROLAND to LAD and SVG to RCA. 2. Multiple sternal revisions due to dehiscence as well as wound infections. 3. Cardiac catheterization (07/09/2017): Left main with 40% ostial to mid stenosis. LAD is totally occluded proximally. Left circumflex is totally occluded proximally. RCA is totally occluded at the origin. ROLAND to LAD is widely patent with extensive collaterals from the LAD to the RCA and minimal collaterals to the left circumflex. Vein graft to the RCA is totally occluded. ALLERGIES: TETANUS. MEDICATIONS: 1. Fenofibrate 40 mg daily. 2. Metoprolol tartrate 12.5 mg b.i.d. 3. Enalapril 2.5 mg daily. 4. Glipizide 10 mg b.i.d. FAMILY HISTORY: Denies sudden cardiac within the family. SOCIAL HISTORY: Previously smoked around 1/2 pack a day, but states that he quit. Denies alcohol or drug abuse. REVIEW OF SYSTEMS: Fourteen systems were reviewed including osteopathic pertinent positives and negatives above, otherwise negative. PHYSICAL EXAMINATION: VITAL SIGNS: Temperature 98.2, heart rate 61, blood pressure 115/63, respirations 18, pulse oximetry 96 percent on 2 liters. GENERAL: The patient appears well in no acute distress, alert, awake and oriented x3. HEENT: Extraocular muscles intact. Mucous membranes moist. NECK: Supple. Mild JVD noted at 45 degrees. Carotid upstroke is brisk in nature. HEART: Regular rate and rhythm. Positive first and second heart sounds were noted. No murmurs, gallops or rubs. LUNGS: Decreased breath sounds with rales noted at the bases. ABDOMEN: Soft, nontender, nondistended. No organomegaly noted. EXTREMITIES: Trace edema noted bilaterally. Femoral and distal pulses are intact bilaterally. NEUROLOGIC: No focal deficits. SKIN: Warm, dry and intact. OSTEOPATHIC: No kyphoscoliosis, lordosis or paraspinal tender points. LABORATORY DATA: Hemoglobin 13.3, hematocrit 40.0, platelets 154. Potassium 4.0, BUN 16, creatinine 1.0. Troponin 0.19. BNP 1140. Electrocardiogram (07/16/2017 at 0212): Sinus rhythm, left atrial enlargement, moderate interventricular conduction delay, ST-T wave changes laterally, possibly due to ischemia. IMPRESSIONS: 1. Acute systolic exacerbation of congestive heart failure. 2. Ischemic cardiomyopathy with an ejection fraction of 10 percent. 3. Significant extensive coronary artery disease as above. 4. Elevated troponin, most likely type 2 due to his acute systolic heart failure as well as extensive coronary artery disease. 5. Diabetes mellitus. 6. Hyperlipidemia. 7. Previous tobacco abuse. RECOMMENDATIONS: 1. Mr. Torres presented with significant shortness of breath and appears to be in acute systolic heart failure. 2. He was not discharged home on any type of diuretic and this may be the cause as well as salt indiscretion. 3. He will be diuresed with IV Lasix. 4. He does not have any chest pain and his troponin is most likely due to his acute systolic heart failure. 5. I did review his previous cardiac catheterization and agree with Dr. Walls that he has no revascularization options at this time, including PCI, [employer]ORCYCLE [employer] or repeat coronary artery bypass grafting. 6. He will continue on medical therapy. 7. Overall, he should be considered for cardiac transplant, although this is difficult due to financial/insurance issues. 8. We will check a 2-D echo to look at his overall left ventricular function, cardiac structure and possible valvulopathies. 9. So far, he appears to be better compensated after Lasix and I do not believe that he needs further inotropic therapy with milrinone or dobutamine. 10. Further recommendations will be made based on the hospital course. Thank you for allowing me to see Kiko Torres. If there are any questions, please do not hesitate to call. Michael Cyr DO VGP/KEN , 11:59 PM , 12:36 AM
[2017-07-17] MEDS: TEMAZEPAM 15 MG CAP PO PRN ×2 (03:42→23:15)
[2017-07-17 06:38] LABS: AUTOMATED NEUTROPHIL # 5.9 TH/MM3 (1.8-7.7); BASOPHIL # 0.1 TH/MM3 (0-0.2); BASOPHIL % 0.9 % (0.0-2.0); EOSINOPHIL # 0.1 TH/MM3 (0-0.4); EOSINOPHIL % 0.7 % (0.0-4.0); HEMATOCRIT 45.3 % (39.0-51.0); HEMOGLOBIN 15.5 GM/DL (13.0-17.0); LYMPHOCYTE # 1.4 TH/MM3 (1.0-4.8); MEAN CELL VOLUME 95.7 FL (80.0-100.0); MEAN CORPUSCULAR HEMOGLOBIN 32.8 PG (27.0-34.0); MEAN CORPUSCULAR HGB CONC 34.3 % (32.0-36.0); MEAN PLATELET VOLUME 10.4 FL (7.0-11.0); MONO % 6.6 % (0.0-8.0); MONOCYTE # 0.5 TH/MM3 (0-0.9); NEUT % 73.8 % (16.0-70.0); PLATELET COUNT 159 TH/MM3 (150-450); RED BLOOD COUNT 4.73 MIL/MM3 (4.50-5.90); RED CELL DISTRIBUTION WIDTH 14.3 % (11.6-17.2)
[2017-07-17 06:54] LABS: BICARBONATE 28.8 MEQ/L (21.0-32.0); CALCIUM 8.8 MG/DL (8.5-10.1); CREATININE 1.24 MG/DL (0.60-1.30)
--- NOTE | 2017-07-17 07:40 | HHI.PR ---
Subjective Remarks Follow-up dilated cardiomyopathy, systolic CHF with exacerbation, patient with reduced ejection fraction 50% by recent cardiac cath, s/p recent non-ST elevation [place] The patient feels improved today. He is very tired. Has a good urine output. However he is improving with diuresis, he is saturating well on room air at this time. Objective Vitals Vital Signs Date Time Temp Pulse Resp B/P (MAP) Pulse Ox O2 Delivery O2 Flow Rate FiO2 07/17/17 06:36 79 07/17/17 05:31 61 07/17/17 03:44 97.8 65 17 118/69 (85) 97 07/17/17 03:00 62 07/17/17 02:00 56 07/17/17 01:17 56 07/17/17 00:00 74 07/16/17 23:30 97.6 68 18 113/56 (75) 98 07/16/17 23:00 63 07/16/17 22:00 62 07/16/17 21:22 97 Nasal Cannula 2.00 07/16/17 21:00 68 07/16/17 20:00 72 07/16/17 19:28 98.3 68 19 105/48 (67) 99 07/16/17 19:00 71 07/16/17 17:40 99 2.00 07/16/17 16:00 98.1 69 18 115/66 (82) 99 07/16/17 16:00 61 07/16/17 15:00 58 07/16/17 14:00 72 07/16/17 13:40 98.2 61 18 115/63 (80) 96 07/16/17 11:44 98.2 62 22 110/57 (74) 93 07/16/17 07:45 98.4 55 22 109/56 (73) 93 I/O 07/16/17 07/16/17 07/16/17 07/17/17 07/17/17 07/17/17 07:00 15:00 23:00 07:00 15:00 23:00 Intake Total 240 ml 220 ml Output Total 500 ml 500 ml 650 ml 550 ml Balance -500 ml -500 ml -410 ml -330 ml Intake Oral 240 ml 220 ml Output Urine Total 500 ml 500 ml 650 ml 550 ml # Bowel Movements 0 Result Diagram: 07/17/17 0607/17/17607 Imaging Follow-up dilated cardiomyopathy, systolic CHF with exacerbation patient with reduced ejection fraction of 10%, patient with recent non-ST elevation [place] Patient is a little bit improved today. He is saturating well on room air at this time. Feels very tired. Not eating much. Has a good urine output. Objective Remarks GENERAL: This is a 52 yo male appearing older than the stated age, chronically ill, in bed with sob , in some distress. CARDIOVASCULAR: Regular rate and rhythm. RESPIRATORY: Bibasilar crackles. Decreased breath sounds bilaterally. GASTROINTESTINAL: Abdomen soft, non-tender, nondistended. No hepato-splenomegaly , or palpable masses. No guarding. MUSCULOSKELETAL: Extremities without clubbing, cyanosis. Bilateral LE edema. No joint tenderness, effusion, or edema noted. No calf tenderness. Negative Homans sign bilaterally. NEUROLOGICAL: Awake and alert. Cranial nerves II through XII intact. Motor and sensory grossly within normal limits. Five out of 5 muscle strength in all muscle groups. Normal speech. A/P Assessment and Plan 52-year-old man with: Dilated cardiomyopathy/ systolic CHF with exacerbation, patient with severely reduced EF of 10% by recent cardiac cath. BNP elevated on admission for Elevated trops poss 2/2 demand ischemia from CHF exacerbation EF 10% by cath. Continue beta herbert, KODY-I Received 80 mg IV lasix in the ED Start lasix 40 mg IV bid Monitor closely kidney function Monitor UOP 2D ECHO pending Was seen by Dr Walls on last admission Consult Dr Walls. Spoke with Dr Walls as patient is noted with change in status. He is more sob and diaphoretic. There is nothing to revasculate per previous cath per Dr Walls. Also Dr Payan will see the patient. Called Dr Payan cardio EKG reviewed and discussed with Dr Payan. EKG however at baseline. Dr Payan will consider starting Milrinone IV drip if continues to deteriorate. However patient is imprpved with lasix IV. Admit to [facility] for poss milrinone IV drip and for close monitoring. EKG ordered stat Telemetry Patient is deteriorating will consult palliative care ABG reviewed and reassuring. Monitor closely. CAD/ Recent Non-ST elevation [place] s/p recent cardiac cath by Dr Walls cardio s/p recent left heart catheterization and shows severe 3 vessel [place] CAD with patent ROLAND to LAD and good LAD to RCA collaterals. Vein graft to RCA occluded. EF 10% Continue beta-herbert, KODY inhibitor, aspirin Diabetes mellitus type 2, uncontrolled with A1c of 8 Hold metformin and glipizide can restart at DC. Accuchecks , ISS Recent HA1c 8 Monitor BS Hyperlipidemia - Secondary to multiple side effects including myalgia, statin is contraindicated Tobacco use - Tobacco counseling cessation. Patient says he quit recently however Patient with poor outcome, palliative care consulted however patient wants to be full code. Expect deterioration and multiple readmissions, discussed with Dr. Cyr cardiology and palliative care. DVT prophylaxis: scd/teds/lovenox sq Discussed Condition With patient, nurse, Dr Payan cardiology DC plan: Patient with poor outcome, palliative care consulted however patient wants to be full code. Expect deterioration and multiple readmissions, discussed with Dr. Cyr cardiology and palliative care. Alba Cox MD July 17, 2017 07:40
[2017-07-17] MEDS: INSULIN ASPART SUPPLEMENTAL SCALE SQ SCH ×4 (08:00→20:48)
[2017-07-17] MEDS: SODIUM CHLORIDE 0.9% FLUSH 10 ML FLUSH IV FLUSH SCH ×2 (09:00→20:48)
[2017-07-17] MEDS: DOCUSATE SODIUM 50 MG/SENNA 8.6 MG TAB PO SCH ×2 (09:37→20:47)
[2017-07-17] MEDS: ENALAPRIL MALEATE 2.5 MG TAB PO SCH ×2 (09:37→20:47)
[2017-07-17] MEDS: POTASSIUM CHLORIDE 20 MEQ CONTROLLED RELEASE TAB PO SCH ×2 (09:37→20:47)
[2017-07-17] MEDS: ASPIRIN 81 MG CHEW TAB CHEW SCH (09:37)
[2017-07-17] MEDS: METOPROLOL TARTRATE 25 MG TAB PO SCH ×2 (09:38→20:47)
[2017-07-17] MEDS: FUROSEMIDE 40 MG/4 ML VIAL IVP SCH ×2 (09:38→17:20)
[2017-07-17] MEDS: ENOXAPARIN SODIUM 40 MG/0.4 ML SYRINGE SQ SCH (12:15)
--- NOTE | 2017-07-17 15:34 | HHI.HCPN ---
Spoke with patient at bedside. Nurse and Nikki Atkins LCSW present. Patient remains guarded. He does not engage much in conversation. Left copy of Designation of Health Care Surrogate form in room. Explained [place] statutes regarding hierarchy of health care proxy decision making. I reminded him that if he does not designate his significant other, Tamiko Johnson as HCS she will not have decision making rights should he lose capacity. He does not respond. Will continue to follow throughout hospital course. Palliative care number provided. . Kate Schneider July 17, 2017 15:34
--- NOTE | 2017-07-17 17:12 | PD.CARD.PN ---
Subjective Subjective Remarks No events overnight No chest pain SOB much better Objective Medications Current Medications Medications (Trade) Dose Ordered Sig/Bonita Route Start Time Stop Time Status Last Admin (Lasix Inj) 40 mg BID@,18 IVP 07/16/17 09:00 07/17/17 09:38 (KCl) 20 meq BID PO 07/16/17 09:00 07/17/17 09:37 (Aspirin Chew) 81 mg DAILY CHEW 07/16/17 09:00 07/17/17 09:37 (Vasotec) 2.5 mg BID PO 07/16/17 09:00 07/17/17 09:37 (Lovenox Inj) 40 mg Q24H SQ 07/16/17 10:00 07/17/17 12:15 (NS Flush) 2 ml UNSCH PRN IV FLUSH 07/16/17 09:00 (NS Flush) 2 ml BID IV FLUSH 07/16/17 09:00 07/17/17 09:00 (Tylenol) 650 mg Q4H PRN PO 07/16/17 09:00 (Zofran Inj) 4 mg Q6H PRN IVP 07/16/17 09:00 (Restoril) 15 mg HS PRN PO 07/16/17 21:00 07/17/17 03:42 (Narcan Inj) 0.4 mg UNSCH PRN IV PUSH 07/16/17 09:00 (Nhung-Colace) 1 tab BID PO 07/16/17 09:00 07/17/17 09:37 (Milk Of Magnesia Liq) 30 ml Q12H PRN PO 07/16/17 09:00 (Senokot) 17.2 mg Q12H PRN PO 07/16/17 09:00 (Dulcolax Supp) 10 mg DAILY PRN RECTAL 07/16/17 09:00 (Lactulose Liq) 30 ml DAILY PRN PO 07/16/17 09:00 (Lopressor) 12.5 mg Q12HR PO 07/16/17 09:00 07/17/17 09:38 (Pill Splitter) 1 ea UNSCH PRN OTHER 07/16/17 09:45 (Morphine Inj) 2 mg Q4HR PRN IV PUSH 07/16/17 12:30 (D50w (Vial) Inj) 50 ml UNSCH PRN IV PUSH 07/16/17 21:15 (Glucagon Inj) 1 mg UNSCH PRN OTHER 07/16/17 21:15 (NovoLOG SUPPLEMENTAL SCALE) 1 ACHS SLIDING SCALE SQ 07/17/17 08:00 07/17/17 12:00 Vital Signs / I&O Vital Signs Date Time Temp Pulse Resp B/P (MAP) Pulse Ox O2 Delivery O2 Flow Rate FiO2 07/17/17 11:50 98.6 72 18 113/64 (80) 99 07/17/17 07:15 98.0 69 18 127/69 (88) 98 07/17/17 06:36 79 07/17/17 05:31 61 07/17/17 03:44 97.8 65 17 118/69 (85) 97 07/17/17 03:00 62 07/17/17 02:00 56 07/17/17 01:17 56 07/17/17 00:00 74 07/16/17 23:30 97.6 68 18 113/56 (75) 98 07/16/17 23:00 63 07/16/17 22:00 62 07/16/17 21:22 97 Nasal Cannula 2.00 07/16/17 21:00 68 07/16/17 20:00 72 07/16/17 19:28 98.3 68 19 105/48 (67) 99 07/16/17 19:00 71 07/16/17 17:40 99 2.00 I/O 07/16/17 07/16/17 07/16/17 07/17/17 07/17/17 07/17/17 07:00 15:00 23:00 07:00 15:00 23:00 Intake Total 240 ml 220 ml Output Total 500 ml 500 ml 650 ml 550 ml Balance -500 ml -500 ml -410 ml -330 ml Intake Oral 240 ml 220 ml Output Urine Total 500 ml 500 ml 650 ml 550 ml # Bowel Movements 0 Physical Exam GENERAL: NAD, AAOx3 SKIN: Warm and dry. HEAD: Atraumatic. Normocephalic. EYES: Pupils equal and round. No scleral icterus. No injection or drainage. ENT: No nasal bleeding or discharge. Mucous membranes pink and moist. NECK: Trachea midline. Mild JVD CARDIOVASCULAR: Regular rate and rhythm. RESPIRATORY: No accessory muscle use. Decreased breath sounds bilaterally GASTROINTESTINAL: Abdomen soft, non-tender, nondistended. Hepatic and splenic margins not palpable. MUSCULOSKELETAL: Extremities without clubbing, cyanosis, or edema. No obvious deformities. NEUROLOGICAL: Awake and alert. No obvious cranial nerve deficits. Motor grossly within normal limits. Five out of 5 muscle strength in the arms and legs. Normal speech. PSYCHIATRIC: Appropriate mood and affect; insight and judgment normal. Laboratory Laboratory Tests Test 07/17/17 06:08 White Blood Count 8.0 TH/MM3 Red Blood Count 4.73 MIL/MM3 Hemoglobin 15.5 GM/DL Hematocrit 45.3 % Mean Corpuscular Volume 95.7 FL Mean Corpuscular Hemoglobin 32.8 PG Mean Corpuscular Hemoglobin Concent 34.3 % Red Cell Distribution Width 14.3 % Platelet Count 159 TH/MM3 Mean Platelet Volume 10.4 FL Neutrophils (%) (Auto) 73.8 % Lymphocytes (%) (Auto) 18.0 % Monocytes (%) (Auto) 6.6 % Eosinophils (%) (Auto) 0.7 % Basophils (%) (Auto) 0.9 % Neutrophils # (Auto) 5.9 TH/MM3 Lymphocytes # (Auto) 1.4 TH/MM3 Monocytes # (Auto) 0.5 TH/MM3 Eosinophils # (Auto) 0.1 TH/MM3 Basophils # (Auto) 0.1 TH/MM3 CBC Comment DIFF FINAL Differential Comment Blood Urea Nitrogen 22 MG/DL Creatinine 1.24 MG/DL Random Glucose 174 MG/DL Calcium Level 8.8 MG/DL Sodium Level 137 MEQ/L Potassium Level 3.8 MEQ/L Chloride Level 99 MEQ/L Carbon Dioxide Level 28.8 MEQ/L Anion Gap 9 MEQ/L Estimat Glomerular Filtration Rate 61 ML/MIN Assessment and Plan Problem List: (1) Ischemic cardiomyopathy ICD Codes: I25.5 - Ischemic cardiomyopathy (2) CAD (coronary artery disease) ICD Codes: I25.10 - Atherosclerotic heart disease of [place] coronary artery without angina pectoris Status: Chronic (3) Congestive heart failure ICD Codes: I50.9 - Heart failure, unspecified Status: Acute (4) Non-ST elevation [place] (NSTEMI) ICD Codes: I21.4 - Non-ST elevation (NSTEMI) myocardial infarction Assessment and Plan 1) Acute exacerbation of systolic heart failure Con't diuresis Most likely due to not going home on diuretics as well as salt indiscretion 2) No chest pain Troponin most likely due to heart failure 3) Reviewed previous cardiac catheterization, agree with Dr. Walls, no options for revascularization Con't medical therapy 4) Overall, he should be considered for cardiac transplant, although this is difficult due to financial/insurance issues. 5) 2D echo pending Problem Qualifiers (1) Congestive heart failure: Qualified Codes: I50.23 - Acute on chronic systolic (congestive) heart failure Michael Cyr DO July 17, 2017 17:12
--- NOTE | 2017-07-17 19:08 | ECHRPT ---
Indication: HEART FAILURE CONCLUSIONS Moderately dilated left ventricle. Wall thickness is normal. The overall left ventricular systolic function is severely reduced with an estimated ejection fracti on of 20%. Inferolateral severe hypokinesis. Trace mitral valve regurgitation. Mitral annular calcification is present. BP: / HR: Rhythm: MEASUREMENTS (Male / Female) Normal Values Technical Quality: 2D ECHO LV Diastolic Diameter PLAX 6.2 cm 4.2 - 5.9 / 3.9 - 5.3 cm LV Systolic Diameter PLAX 5.7 cm IVS Diastolic Thickness 0.9 cm 0.6 - 1.0 / 0.6 - 0.9 cm LVPW Diastolic Thickness 0.7 cm 0.6 - 1.0 / 0.6 - 0.9 cm LV Relative Wall Thickness 0.2 M-MODE Aortic Root Diameter MM 3.4 cm AV Cusp Separation MM 1.9 cm DOPPLER Mitral E Point Velocity 96.7 cm/s Mitral A Point Velocity 61.2 cm/s Mitral E to A Ratio 1.6 TR Peak Velocity 195.0 cm/s TR Peak Gradient 15.2 mmHg Right Atrial Pressure 5.0 mmHg Pulmonary Artery Systolic Pressu 20.2 mmHg Right Ventricular Systolic Press 20.2 mmHg FINDINGS LEFT VENTRICLE Moderately dilated left ventricle. Wall thickness is normal. The left ventricular systolic function is severely reduced with an estimated ejection fraction of 20 %. There is diffuse hypokinesis with distinct regional wall motion abnormalities. RIGHT VENTRICLE Normal right ventricular size and systolic function. LEFT ATRIUM The left atrial size is normal. RIGHT ATRIUM The right atrial size is normal. ATRIAL SEPTUM Normal atrial septal thickness without atrial level shunting by limited color doppler interrogation. AORTA The aortic root and proximal ascending aorta are normal in size on limited imaging. MITRAL VALVE Trace mitral valve regurgitation. Mitral annular calcification is present. AORTIC VALVE Trileaflet aortic valve. No aortic valve stenosis or regurgitation. TRICUSPID VALVE Structurally normal tricuspid valve. No tricuspid valve stenosis or regurgitation. PULMONARY VALVE No pulmonary valve regurgitation or stenosis. VESSELS The inferior vena cava is normal in size. PERICARDIUM No pericardial effusion. Cristino Purcell MD, FACC (Electronically Signed) Final Date:17 Jul 2017 19:06
[2017-07-18] VITALS (28 sets, daily range): BP systolic 86–120; BP diastolic 54–78; PULSE 59–112; RESP 18–20; TEMP 97.5–98.6; O2SAT 96–100
[2017-07-18] MEDS: INSULIN ASPART SUPPLEMENTAL SCALE SQ SCH ×4 (08:00→21:51)
[2017-07-18] MEDS: METOPROLOL TARTRATE 25 MG TAB PO SCH ×2 (08:34→21:48)
[2017-07-18] MEDS: ASPIRIN 81 MG CHEW TAB CHEW SCH (08:35)
[2017-07-18] MEDS: POTASSIUM CHLORIDE 20 MEQ CONTROLLED RELEASE TAB PO SCH ×2 (08:35→21:50)
[2017-07-18] MEDS: DOCUSATE SODIUM 50 MG/SENNA 8.6 MG TAB PO SCH ×2 (08:35→21:47)
[2017-07-18] MEDS: ENALAPRIL MALEATE 2.5 MG TAB PO SCH ×2 (08:35→21:48)
[2017-07-18] MEDS: FUROSEMIDE 40 MG/4 ML VIAL IVP SCH ×2 (08:36→18:12)
[2017-07-18] MEDS: SODIUM CHLORIDE 0.9% FLUSH 10 ML FLUSH IV FLUSH SCH ×2 (08:36→21:51)
[2017-07-18] MEDS: ENOXAPARIN SODIUM 40 MG/0.4 ML SYRINGE SQ SCH (09:54)
[2017-07-18] MEDS ORDERED: DEFIB EXTERNAL (14:08)
--- NOTE | 2017-07-18 15:42 | HHI.PR ---
Subjective Remarks Patient is seen at his breathing better. Still with shortness of breath. No diaphoresis no chest pain. He is saturating well on room air. Considers to talk with his family with palliative care. Discussed hospice options with the patient not ready for hospice. Objective Vitals Vital Signs Date Time Temp Pulse Resp B/P (MAP) Pulse Ox O2 Delivery O2 Flow Rate FiO2 07/18/17 15:15 97.7 80 18 95/60 (72) 96 07/18/17 14:00 76 07/18/17 13:00 112 07/18/17 12:00 76 07/18/17 11:01 78 07/18/17 11:01 97.9 86 18 86/54 (65) 98 07/18/17 10:00 68 07/18/17 09:00 84 07/18/17 08:30 97.7 72 18 113/55 (74) 98 07/18/17 08:00 71 07/18/17 07:00 80 07/18/17 06:02 72 07/18/17 05:50 64 07/18/17 04:19 75 07/18/17 03:10 98.2 72 20 115/64 (81) 100 07/18/17 03:00 59 07/18/17 02:00 60 07/18/17 01:00 60 07/18/17 00:13 67 07/17/17 23:20 98.2 62 18 111/71 (84) 98 07/17/17 23:00 63 07/17/17 22:14 61 07/17/17 21:00 68 07/17/17 20:25 98.1 67 18 113/63 (80) 97 07/17/17 20:00 72 07/17/17 19:00 70 07/17/17 18:00 80 07/17/17 17:00 80 07/17/17 16:00 94 I/O 07/17/17 07/17/17 07/17/17 07/18/17 07/18/17 07/18/17 07:00 15:00 23:00 07:00 15:00 23:00 Intake Total 220 ml 780 ml 480 ml Output Total 550 ml 1000 ml 1200 ml Balance -330 ml -220 ml -720 ml Intake Oral 220 ml 780 ml 480 ml Output Urine Total 550 ml 1000 ml 1200 ml Result Diagram: 07/17/1760707/17/17607 Objective Remarks GENERAL: This is a 52 yo male appearing older than the stated age, chronically ill, in bed with sob , in some distress. CARDIOVASCULAR: Regular rate and rhythm. RESPIRATORY: Bibasilar crackles. Decreased breath sounds bilaterally. GASTROINTESTINAL: Abdomen soft, non-tender, nondistended. No hepato-splenomegaly , or palpable masses. No guarding. MUSCULOSKELETAL: Extremities without clubbing, cyanosis. Bilateral LE edema. No joint tenderness, effusion, or edema noted. No calf tenderness. Negative Homans sign bilaterally. NEUROLOGICAL: Awake and alert. Cranial nerves II through XII intact. Motor and sensory grossly within normal limits. Five out of 5 muscle strength in all muscle groups. Normal speech. A/P Assessment and Plan 52-year-old man with: Dilated cardiomyopathy/ systolic CHF with exacerbation, patient with severely reduced EF of 10% by recent cardiac cath. BNP elevated on admission for Elevated trops poss 2/2 demand ischemia from CHF exacerbation EF 10% by cath. Continue beta herbert, KODY-I Received 80 mg IV lasix in the ED Start lasix 40 mg IV bid Monitor closely kidney function Monitor UOP 2D ECHO pending Was seen by Dr Walls on last admission. Spoke with Dr Walls on admission. There is nothing to revasculate per previous cath per Dr Walls. Dr Schuyler santos has seen the patient and following EKG reviewed and discussed with Dr Payan. EKG however at baseline. Patien timpprved with diuresis, and no need of Milrinone IV drip Telemetry Patient is deteriorating will consult palliative care ABG reviewed and reassuring. Monitor closely. CAD/ Recent Non-ST elevation [place] s/p recent cardiac cath by Dr Kavita santos s/p recent left heart catheterization and shows severe 3 vessel [place] CAD with patent ROLAND to LAD and good LAD to RCA collaterals. Vein graft to RCA occluded. EF 10% Continue beta-herbert, KODY inhibitor, aspirin Diabetes mellitus type 2, uncontrolled with A1c of 8 Hold metformin and glipizide can restart at DC. Accuchecks , ISS Recent HA1c 8 Monitor BS Hyperlipidemia - Secondary to multiple side effects including myalgia, statin is contraindicated Tobacco use - Tobacco counseling cessation. Patient says he quit recently however Patient with poor outcome, palliative care consulted however patient wants to be full code. Expect deterioration and multiple readmissions, discussed with Dr. Cyr cardiology and palliative care. DVT prophylaxis: scd/teds/lovenox sq Discussed Condition With patient, nurse, Dr Payan cardiology Code status: full code DC plan: Patient with poor outcome, palliative care consulted however patient wants to be full code. Expect deterioration and multiple readmissions. Patient is a candidate for hospice however refusing at this time. Discussed with Dr. Cyr cardiology and palliative care. Transfer out of [facility] Palliative care following Alba Cox MD July 18, 2017 15:42
--- NOTE | 2017-07-18 18:17 | PD.CARD.PN ---
Subjective Subjective Remarks Patient was seen earlier today, late entry note No events overnight No chest pain SOB much better Just overall depressed Objective Medications Current Medications Medications (Trade) Dose Ordered Sig/Bonita Route Start Time Stop Time Status Last Admin (Lasix Inj) 40 mg BID@,18 IVP 07/16/17 09:00 07/18/17 18:12 (KCl) 20 meq BID PO 07/16/17 09:00 07/18/17 08:35 (Aspirin Chew) 81 mg DAILY CHEW 07/16/17 09:00 07/18/17 08:35 (Vasotec) 2.5 mg BID PO 07/16/17 09:00 07/18/17 08:35 (Lovenox Inj) 40 mg Q24H SQ 07/16/17 10:00 07/18/17 09:54 (NS Flush) 2 ml UNSCH PRN IV FLUSH 07/16/17 09:00 (NS Flush) 2 ml BID IV FLUSH 07/16/17 09:00 07/18/17 08:36 (Tylenol) 650 mg Q4H PRN PO 07/16/17 09:00 (Zofran Inj) 4 mg Q6H PRN IVP 07/16/17 09:00 (Restoril) 15 mg HS PRN PO 07/16/17 21:00 07/17/17 23:15 (Narcan Inj) 0.4 mg UNSCH PRN IV PUSH 07/16/17 09:00 (Nhung-Colace) 1 tab BID PO 07/16/17 09:00 07/18/17 08:35 (Milk Of Magnesia Liq) 30 ml Q12H PRN PO 07/16/17 09:00 (Senokot) 17.2 mg Q12H PRN PO 07/16/17 09:00 (Dulcolax Supp) 10 mg DAILY PRN RECTAL 07/16/17 09:00 (Lactulose Liq) 30 ml DAILY PRN PO 07/16/17 09:00 (Lopressor) 12.5 mg Q12HR PO 07/16/17 09:00 07/18/17 08:34 (Pill Splitter) 1 ea UNSCH PRN OTHER 07/16/17 09:45 (Morphine Inj) 2 mg Q4HR PRN IV PUSH 07/16/17 12:30 (D50w (Vial) Inj) 50 ml UNSCH PRN IV PUSH 07/16/17 21:15 (Glucagon Inj) 1 mg UNSCH PRN OTHER 07/16/17 21:15 (NovoLOG SUPPLEMENTAL SCALE) 1 ACHS SLIDING SCALE SQ 07/17/17 08:00 07/18/17 12:00 Vital Signs / I&O Vital Signs Date Time Temp Pulse Resp B/P (MAP) Pulse Ox O2 Delivery O2 Flow Rate FiO2 07/18/17 17:40 Nasal Cannula 2.00 07/18/17 17:01 72 07/18/17 16:00 82 07/18/17 15:15 97.7 80 18 95/60 (72) 96 07/18/17 15:00 74 07/18/17 14:00 76 07/18/17 13:00 112 07/18/17 12:00 76 07/18/17 11:01 78 07/18/17 11:01 97.9 86 18 86/54 (65) 98 07/18/17 10:00 68 07/18/17 09:00 84 07/18/17 08:30 97.7 72 18 113/55 (74) 98 07/18/17 08:00 71 07/18/17 07:00 80 07/18/17 06:02 72 07/18/17 05:50 64 07/18/17 04:19 75 07/18/17 03:10 98.2 72 20 115/64 (81) 100 07/18/17 03:00 59 07/18/17 02:00 60 07/18/17 01:00 60 07/18/17 00:13 67 07/17/17 23:20 98.2 62 18 111/71 (84) 98 07/17/17 23:00 63 07/17/17 22:14 61 07/17/17 21:00 68 07/17/17 20:25 98.1 67 18 113/63 (80) 97 07/17/17 20:00 72 07/17/17 19:00 70 I/O 07/17/17 07/17/17 07/17/17 07/18/17 07/18/17 07/18/17 07:00 15:00 23:00 07:00 15:00 23:00 Intake Total 220 ml 780 ml 480 ml 720 ml Output Total 550 ml 1000 ml 1200 ml 675 ml Balance -330 ml -220 ml -720 ml 45 ml Intake Oral 220 ml 780 ml 480 ml 720 ml Output Urine Total 550 ml 1000 ml 1200 ml 675 ml # Voids 6 # Bowel Movements 1 Physical Exam GENERAL: NAD, AAOx3 SKIN: Warm and dry. HEAD: Atraumatic. Normocephalic. EYES: Pupils equal and round. No scleral icterus. No injection or drainage. ENT: No nasal bleeding or discharge. Mucous membranes pink and moist. NECK: Trachea midline. Mild JVD CARDIOVASCULAR: Regular rate and rhythm. RESPIRATORY: No accessory muscle use. Decreased breath sounds bilaterally GASTROINTESTINAL: Abdomen soft, non-tender, nondistended. Hepatic and splenic margins not palpable. MUSCULOSKELETAL: Extremities without clubbing, cyanosis, or edema. No obvious deformities. NEUROLOGICAL: Awake and alert. No obvious cranial nerve deficits. Motor grossly within normal limits. Five out of 5 muscle strength in the arms and legs. Normal speech. PSYCHIATRIC: Appropriate mood and affect; insight and judgment normal. Assessment and Plan Problem List: (1) Ischemic cardiomyopathy ICD Codes: I25.5 - Ischemic cardiomyopathy (2) CAD (coronary artery disease) ICD Codes: I25.10 - Atherosclerotic heart disease of [place] coronary artery without angina pectoris Status: Chronic (3) Congestive heart failure ICD Codes: I50.9 - Heart failure, unspecified Status: Acute (4) Non-ST elevation [place] (NSTEMI) ICD Codes: I21.4 - Non-ST elevation (NSTEMI) myocardial infarction Assessment and Plan 1) Acute exacerbation of systolic heart failure Con't diuresis Most likely due to not going home on diuretics as well as salt indiscretion Will see about [facility] 2) No chest pain Troponin most likely due to heart failure 3) Reviewed previous cardiac catheterization, agree with Dr. Walls, no options for revascularization Con't medical therapy 4) Overall, he should be considered for cardiac transplant, although this is difficult due to financial/insurance issues. 5) EF 20% Problem Qualifiers (1) Congestive heart failure: Qualified Codes: I50.23 - Acute on chronic systolic (congestive) heart failure Michael Cyr DO July 18, 2017 18:17
[2017-07-18] MEDS: TEMAZEPAM 15 MG CAP PO PRN (21:46)
[2017-07-19] VITALS (25 sets, daily range): BP systolic 90–144; BP diastolic 50–76; PULSE 53–98; RESP 20; TEMP 97.9–98.2; O2SAT 95–99
[2017-07-19] MEDS: ACETAMINOPHEN 325 MG TAB PO PRN ×2 (00:04→09:31)
[2017-07-19] MEDS: INSULIN ASPART SUPPLEMENTAL SCALE SQ SCH ×4 (08:00→21:19)
[2017-07-19] MEDS: METOPROLOL TARTRATE 25 MG TAB PO SCH ×2 (09:00→18:44)
[2017-07-19] MEDS: ENALAPRIL MALEATE 2.5 MG TAB PO SCH ×2 (09:00→21:13)
[2017-07-19] MEDS: DOCUSATE SODIUM 50 MG/SENNA 8.6 MG TAB PO SCH ×2 (09:30→21:13)
[2017-07-19] MEDS: SODIUM CHLORIDE 0.9% FLUSH 10 ML FLUSH IV FLUSH SCH ×2 (09:30→21:14)
[2017-07-19] MEDS: ENOXAPARIN SODIUM 40 MG/0.4 ML SYRINGE SQ SCH (09:30)
[2017-07-19] MEDS: FUROSEMIDE 40 MG/4 ML VIAL IVP SCH (09:30)
[2017-07-19] MEDS: ASPIRIN 81 MG CHEW TAB CHEW SCH (09:31)
[2017-07-19] MEDS: POTASSIUM CHLORIDE 20 MEQ CONTROLLED RELEASE TAB PO SCH ×2 (09:31→21:13)
--- NOTE | 2017-07-19 13:26 | PD.CARD.PN ---
Subjective Subjective Remarks No events overnight No chest pain SOB much better Just overall depressed Objective Medications Current Medications Medications (Trade) Dose Ordered Sig/Bonita Route Start Time Stop Time Status Last Admin (Lasix Inj) 40 mg BID@ IVP 07/16/17 09:00 07/19/17 09:30 (KCl) 20 meq BID PO 07/16/17 09:00 07/19/17 09:31 (Aspirin Chew) 81 mg DAILY CHEW 07/16/17 09:00 07/19/17 09:31 (Vasotec) 2.5 mg BID PO 07/16/17 09:00 07/18/17 21:48 (Lovenox Inj) 40 mg Q24H SQ 07/16/17 10:00 07/19/17 09:30 (NS Flush) 2 ml UNSCH PRN IV FLUSH 07/16/17 09:00 (NS Flush) 2 ml BID IV FLUSH 07/16/17 09:00 07/19/17 09:30 (Tylenol) 650 mg Q4H PRN PO 07/16/17 09:00 07/19/17 09:31 (Zofran Inj) 4 mg Q6H PRN IVP 07/16/17 09:00 (Restoril) 15 mg HS PRN PO 07/16/17 21:00 07/18/17 21:46 (Narcan Inj) 0.4 mg UNSCH PRN IV PUSH 07/16/17 09:00 (Nhung-Colace) 1 tab BID PO 07/16/17 09:00 07/19/17 09:30 (Milk Of Magnesia Liq) 30 ml Q12H PRN PO 07/16/17 09:00 (Senokot) 17.2 mg Q12H PRN PO 07/16/17 09:00 (Dulcolax Supp) 10 mg DAILY PRN RECTAL 07/16/17 09:00 (Lactulose Liq) 30 ml DAILY PRN PO 07/16/17 09:00 (Lopressor) 12.5 mg Q12HR PO 07/16/17 09:00 07/18/17 21:48 (Pill Splitter) 1 ea UNSCH PRN OTHER 07/16/17 09:45 (Morphine Inj) 2 mg Q4HR PRN IV PUSH 07/16/17 12:30 (D50w (Vial) Inj) 50 ml UNSCH PRN IV PUSH 07/16/17 21:15 (Glucagon Inj) 1 mg UNSCH PRN OTHER 07/16/17 21:15 (NovoLOG SUPPLEMENTAL SCALE) 1 ACHS SLIDING SCALE SQ 07/17/17 08:00 07/19/17 12:00 Vital Signs / I&O Vital Signs Date Time Temp Pulse Resp B/P (MAP) Pulse Ox O2 Delivery O2 Flow Rate FiO2 07/19/17 13:00 70 07/19/17 12:00 97.9 77 20 106/56 (73) 98 07/19/17 12:00 75 07/19/17 11:00 76 07/19/17 10:00 70 07/19/17 09:00 80 07/19/17 08:00 70 07/19/17 07:15 75 07/19/17 07:15 98.0 70 20 112/58 (76) 95 07/19/17 06:17 75 07/19/17 05:09 66 07/19/17 04:00 70 07/19/17 03:22 98.2 75 20 90/50 (63) 99 07/19/17 03:00 70 07/19/17 02:00 70 07/19/17 01:53 96 Nasal Cannula 2.00 07/19/17 01:15 18 07/19/17 01:00 70 07/19/17 00:00 68 07/18/17 23:58 97.5 67 18 105/63 (77) 96 07/18/17 23:00 103 07/18/17 22:00 72 07/18/17 21:00 78 07/18/17 20:00 84 07/18/17 19:40 98.6 97 20 120/78 (92) 98 07/18/17 19:00 84 07/18/17 17:40 Nasal Cannula 2.00 07/18/17 17:01 72 07/18/17 16:00 82 07/18/17 15:15 97.7 80 18 95/60 (72) 96 07/18/17 15:00 74 07/18/17 14:00 76 I/O 07/18/17 07/18/17 07/18/17 07/19/17 07/19/17 07/19/17 07:00 15:00 23:00 07:00 15:00 23:00 Intake Total 480 ml 720 ml 480 ml Output Total 1200 ml 675 ml 550 ml Balance -720 ml 45 ml -70 ml Intake Oral 480 ml 720 ml 480 ml Output Urine Total 1200 ml 675 ml 550 ml # Voids 6 # Bowel Movements 1 Physical Exam GENERAL: NAD, AAOx3 SKIN: Warm and dry. HEAD: Atraumatic. Normocephalic. EYES: Pupils equal and round. No scleral icterus. No injection or drainage. ENT: No nasal bleeding or discharge. Mucous membranes pink and moist. NECK: Trachea midline. Mild JVD CARDIOVASCULAR: Regular rate and rhythm. RESPIRATORY: No accessory muscle use. Decreased breath sounds bilaterally GASTROINTESTINAL: Abdomen soft, non-tender, nondistended. Hepatic and splenic margins not palpable. MUSCULOSKELETAL: Extremities without clubbing, cyanosis, or edema. No obvious deformities. NEUROLOGICAL: Awake and alert. No obvious cranial nerve deficits. Motor grossly within normal limits. Five out of 5 muscle strength in the arms and legs. Normal speech. PSYCHIATRIC: Appropriate mood and affect; insight and judgment normal. Assessment and Plan Problem List: (1) Ischemic cardiomyopathy ICD Codes: I25.5 - Ischemic cardiomyopathy (2) CAD (coronary artery disease) ICD Codes: I25.10 - Atherosclerotic heart disease of [place] coronary artery without angina pectoris Status: Chronic (3) Congestive heart failure ICD Codes: I50.9 - Heart failure, unspecified Status: Acute (4) Non-ST elevation OR (NSTEMI) ICD Codes: I21.4 - Non-ST elevation (NSTEMI) myocardial infarction Assessment and Plan 1) Acute exacerbation of systolic heart failure Con't diuresis Most likely due to not going home on diuretics as well as salt indiscretion Will see about Lifevest 2) No chest pain Troponin most likely due to heart failure 3) Reviewed previous cardiac catheterization, agree with Dr. Walls, no options for revascularization Con't medical therapy 4) Overall, he should be considered for cardiac transplant, although this is difficult due to financial/insurance issues. He's attempting to work on insurance 5) EF 20% 6) No further cardiovascular work up Await hospital decision on Lifevest Problem Qualifiers (1) Congestive heart failure: Qualified Codes: I50.23 - Acute on chronic systolic (congestive) heart failure Michael Cyr DO July 19, 2017 13:26
--- NOTE | 2017-07-19 15:15 | HHI.HCPN ---
Met with Mr. Torres for ongoing support and conversations regarding goals of care. Mr. Torres presents very withdrawn and depressed. Currently lying in bed in the dark, tv off. Gently engage in conversation, at first he is minimally answering questions but begins to engage more. Expressed concerns regarding his lunch tray. Assisted in ordering additional tray as he is still hungry. Allowed time for reflection through active listening. Mr Torres verbalizes distrust in others and verbalizes he is angry with his situation. Becomes tearful and expressed frustration with both his situation and his anger stating he doesn't want to be angry. Provided emotional support. Mr. Torres states he is currently waiting to hear back from [facility] regarding his social security situation. Left message with them requesting a follow-up to update patient. He also understands request for lifevest is being reviewed by administration. Spoke with CM and requested they follow-up with patient to inform him of this. Spoke with RN, updated on all of the above and requested follow-up regarding additional meal tray should it not arrive. Palliative care will continue to follow Mr. Torres throughout hospitalization to continue to build rapport, provide support, and assist in conversations regarding goals of care. Nikki Atkins, ACCOUNT INFORMATION CLERK July 19, 2017 15:15
[2017-07-19] MEDS ORDERED: ASPI81 CHEW (17:04)
[2017-07-19] MEDS ORDERED: POTA-163 PO (17:04)
[2017-07-19] MEDS ORDERED: FURO40TA PO (17:04)
--- NOTE | 2017-07-19 17:07 | HHI.PR ---
Subjective Remarks Patient says he is feeling well. Denies any chest pain or shortness of breath. Denies nausea or vomiting. Has been walking around without difficulty. Objective Vital Signs Date Time Temp Pulse Resp B/P (MAP) Pulse Ox O2 Delivery O2 Flow Rate FiO2 07/19/17 16:00 53 07/19/17 15:00 98.2 98 20 141/69 (93) 97 07/19/17 15:00 82 07/19/17 14:00 77 07/19/17 13:00 70 07/19/17 12:00 97.9 77 20 106/56 (73) 98 07/19/17 12:00 75 07/19/17 11:00 76 07/19/17 10:00 70 07/19/17 09:00 80 07/19/17 08:00 70 07/19/17 07:15 75 07/19/17 07:15 98.0 70 20 112/58 (76) 95 07/19/17 06:17 75 07/19/17 05:09 66 07/19/17 04:00 70 07/19/17 03:22 98.2 75 20 90/50 (63) 99 07/19/17 03:00 70 07/19/17 02:00 70 07/19/17 01:53 96 Nasal Cannula 2.00 07/19/17 01:15 18 07/19/17 01:00 70 07/19/17 00:00 68 07/18/17 23:58 97.5 67 18 105/63 (77) 96 07/18/17 23:00 103 07/18/17 22:00 72 07/18/17 21:00 78 07/18/17 20:00 84 07/18/17 19:40 98.6 97 20 120/78 (92) 98 07/18/17 19:00 84 07/18/17 17:40 Nasal Cannula 2.00 I/O 07/18/17 07/18/17 07/18/17 07/19/17 07/19/17 07/19/17 06:59 14:59 22:59 06:59 14:59 22:59 Intake Total 480 ml 720 ml 480 ml Output Total 1200 ml 675 ml 550 ml Balance -720 ml 45 ml -70 ml Intake Oral 480 ml 720 ml 480 ml Output Urine Total 1200 ml 675 ml 550 ml # Voids 6 # Bowel Movements 1 Result Diagram: 07/17/1760707/17/17 06 Objective Remarks GENERAL: Patient lying in bed. Appears comfortable. Alert and oriented 3. SKIN: Warm and dry. HEAD: Normocephalic. EYES: No scleral icterus. No injection or drainage. NECK: Supple, trachea midline. No JVD. CARDIOVASCULAR: Regular rate and rhythm without murmurs, gallops, or rubs. RESPIRATORY: Breath sounds equal bilaterally. No accessory muscle use. GASTROINTESTINAL: Abdomen soft, non-tender, nondistended. MUSCULOSKELETAL: No cyanosis, or edema. BACK: Nontender without obvious deformity. No CVA tenderness. A/P Assessment and Plan 52-year-old man with: //Dilated cardiomyopathy/ systolic CHF with exacerbation, patient with severely reduced EF of 10% by recent cardiac cath. BNP elevated on admission for Elevated trops poss 2/2 demand ischemia from CHF exacerbation EF 10% by cath. Continue beta herbert, KODY-I Received 80 mg IV lasix in the ED Start lasix 40 mg IV bid Monitor closely kidney function Monitor UOP 2D ECHO pending Was seen by Dr Walls on last admission. Spoke with Dr Walls on admission. There is nothing to revasculate per previous cath per Dr Walls. Dr Payan cardio has seen the patient and following EKG reviewed and discussed with Dr Payan. EKG however at baseline. Patien timpprved with diuresis, and no need of Milrinone IV drip Telemetry Patient is deteriorating will consult palliative care ABG reviewed and reassuring. Monitor closely. = Patient approved for LifeVest. Can discharge when in place. Follow-up with cardiology as outpatient. Switch to furosemide by mouth twice daily. Will check labs in morning to make sure potassium is stable after being on IV Lasix for 2 days //CAD/ Recent Non-ST elevation [place] s/p recent cardiac cath by Dr Walls cardio s/p recent left heart catheterization and shows severe 3 vessel [place] CAD with patent ROLAND to LAD and good LAD to RCA collaterals. Vein graft to RCA occluded. EF 10% Continue beta-herbert, KODY inhibitor, aspirin //Diabetes mellitus type 2, uncontrolled with A1c of 8 Hold metformin and glipizide can restart at DC. Accuchecks , ISS Recent HA1c 8 Monitor BS //Hyperlipidemia - Secondary to multiple side effects including myalgia, statin is contraindicated //Tobacco use - Tobacco counseling cessation. Patient says he quit recently however Patient with poor prognosis, palliative care consulted however patient wants to be full code. Expect deterioration and multiple readmissions, discussed with Dr. Cyr cardiology and palliative care. DVT prophylaxis: scd/teds/lovenox sq Discharge Planning DC plan: Patient with poor prognosis, palliative care consulted however patient wants to be full code. Expect deterioration and multiple readmissions. Patient is a candidate for hospice however refusing at this time. Discussed with Dr. Cyr cardiology and palliative care. Transfer out of [facility] Palliative care following = Patient will receive LifeVest. Discussed with case management. Likely discharge home tomorrow morning if labs are stable. Brown Shultz MD July 19, 2017 17:07
[2017-07-19] MEDS: FUROSEMIDE 40 MG TAB PO SCH (17:50)
[2017-07-19] MEDS: TEMAZEPAM 15 MG CAP PO PRN (21:17)
[2017-07-20] VITALS (13 sets, daily range): BP systolic 92–124; BP diastolic 60–75; PULSE 75–104; RESP 16–20; TEMP 97.5–98.6; O2SAT 95–100
[2017-07-20 07:54] LABS: BICARBONATE 27.2 MEQ/L (21.0-32.0); CALCIUM 9.2 MG/DL (8.5-10.1); CREATININE 1.26 MG/DL (0.60-1.30); MAGNESIUM 2.4 MG/DL (1.5-2.5); PHOSPHORUS 3.3 MG/DL (2.5-4.9)
[2017-07-20] MEDS: INSULIN ASPART SUPPLEMENTAL SCALE SQ SCH (09:25)
[2017-07-20] MEDS: ENALAPRIL MALEATE 2.5 MG TAB PO SCH (09:33)
[2017-07-20] MEDS: DOCUSATE SODIUM 50 MG/SENNA 8.6 MG TAB PO SCH (09:33)
[2017-07-20] MEDS: ASPIRIN 81 MG CHEW TAB CHEW SCH (09:33)
[2017-07-20] MEDS: POTASSIUM CHLORIDE 20 MEQ CONTROLLED RELEASE TAB PO SCH (09:33)
[2017-07-20] MEDS: ENOXAPARIN SODIUM 40 MG/0.4 ML SYRINGE SQ SCH (09:33)
[2017-07-20] MEDS: FUROSEMIDE 40 MG TAB PO SCH (09:33)
[2017-07-20] MEDS: METOPROLOL TARTRATE 25 MG TAB PO SCH (09:33)
[2017-07-20] MEDS: SODIUM CHLORIDE 0.9% FLUSH 10 ML FLUSH IV FLUSH SCH (09:34)
[2017-07-20] MEDS: ACETAMINOPHEN 325 MG TAB PO PRN (09:34)
[2017-07-20] MEDS ORDERED: ENAL2.5T PO (12:11)
--- NOTE | 2017-07-20 12:20 | HHI.PR ---
Subjective Remarks Says he is doing well. Denies any chest pain or shortness of breath. Has been walking around the [place]. Objective Vital Signs Date Time Temp Pulse Resp B/P (MAP) Pulse Ox O2 Delivery O2 Flow Rate FiO2 07/20/17 11:34 97.8 79 16 108/75 (86) 99 07/20/17 10:00 86 07/20/17 09:00 104 07/20/17 08:00 82 07/20/17 07:46 Room Air 07/20/17 07:46 97.5 77 16 111/73 (86) 100 07/20/17 07:00 85 07/20/17 06:00 75 07/20/17 05:00 77 07/20/17 04:00 79 07/20/17 04:00 98.1 79 20 124/66 (85) 95 07/20/17 03:00 83 07/20/17 02:00 80 07/20/17 01:00 82 07/20/17 00:00 80 07/20/17 00:00 Room Air 07/20/17 00:00 98.6 80 20 92/60 (71) 97 07/19/17 23:00 77 07/19/17 22:00 89 07/19/17 21:00 96 07/19/17 20:00 98.0 77 20 144/76 (98) 96 07/19/17 20:00 77 07/19/17 18:00 61 07/19/17 17:00 62 07/19/17 16:00 53 07/19/17 15:00 98.2 98 20 141/69 (93) 97 07/19/17 15:00 82 07/19/17 14:00 77 07/19/17 13:00 70 I/O 07/19/17 07/19/17 07/19/17 07/20/17 07/20/17 07/20/17 07:00 15:00 23:00 07:00 15:00 23:00 Intake Total 480 ml 960 ml 720 ml Output Total 550 ml 1150 ml 1000 ml Balance -70 ml -190 ml -280 ml Intake Oral 480 ml 960 ml 720 ml Output Urine Total 550 ml 1150 ml 1000 ml # Bowel Movements 1 0 Result Diagram: 07/17/17 0608 07/20/17 0540 Objective Remarks GENERAL: Patient lying in bed. Alert and oriented 3. Patient appears comfortable. SKIN: Warm and dry. HEAD: Normocephalic. EYES: No scleral icterus. No injection or drainage. NECK: Supple, trachea midline. No JVD. CARDIOVASCULAR: Regular rate and rhythm without murmurs, gallops, or rubs. RESPIRATORY: Breath sounds equal bilaterally. No accessory muscle use. GASTROINTESTINAL: Abdomen soft, non-tender, nondistended. MUSCULOSKELETAL: No cyanosis, or edema. BACK: Nontender without obvious deformity. No CVA tenderness. A/P Assessment and Plan 52-year-old man with: //Dilated cardiomyopathy/ systolic CHF with exacerbation, patient with severely reduced EF of 10% by recent cardiac cath. BNP elevated on admission for Elevated trops poss 2/2 demand ischemia from CHF exacerbation EF 10% by cath. Continue beta herbert, KODY-I Received 80 mg IV lasix in the ED Start lasix 40 mg IV bid Monitor closely kidney function Monitor UOP 2D ECHO pending Was seen by Dr Walls on last admission. Spoke with Dr Walls on admission. There is nothing to revasculate per previous cath per Dr Walls. Dr Schuyler santos has seen the patient and following EKG reviewed and discussed with Dr Payan. EKG however at baseline. Patien timpprved with diuresis, and no need of Milrinone IV drip Telemetry Patient is deteriorating will consult palliative care ABG reviewed and reassuring. Monitor closely. = Patient approved for LifeVest. Can discharge when in place. Follow-up with cardiology as outpatient. Switch to furosemide by mouth twice daily. Will check labs in morning to make sure potassium is stable after being on IV Lasix for 2 days = Potassium 4.5, stable. Will discharge home on by mouth Lasix. Patient will receive LifeVest. We discussed the importance of following up with primary care. Patient and family member at bedside convey understanding. //CAD/ Recent Non-ST elevation [place] s/p recent cardiac cath by Dr Kavita santos s/p recent left heart catheterization and shows severe 3 vessel [place] CAD with patent ROLAND to LAD and good LAD to RCA collaterals. Vein graft to RCA occluded. EF 10% Continue beta-herbert, KODY inhibitor, aspirin //Diabetes mellitus type 2, uncontrolled with A1c of 8 Hold metformin and glipizide can restart at DC. Accuchecks , ISS Recent HA1c 8 Monitor BS //Hyperlipidemia - Secondary to multiple side effects including myalgia, statin is contraindicated //Tobacco use - Tobacco counseling cessation. Patient says he quit recently however Patient with poor prognosis, palliative care consulted however patient wants to be full code. Expect deterioration and multiple readmissions, discussed with Dr. Cyr cardiology and palliative care. DVT prophylaxis: scd/teds/lovenox sq Discharge Planning DC plan: Patient with poor prognosis, palliative care consulted however patient wants to be full code. Expect deterioration and multiple readmissions. Patient is a candidate for hospice however refusing at this time. Discussed with Dr. Cyr cardiology and palliative care. Transfer out of [facility] Palliative care following = Discharge home. Continue medical management. LifeVest to be provided. Follow-up with primary care, cardiology as outpatient. Brown Shultz MD July 20, 2017 12:20
--- NOTE | 2017-07-20 12:22 | HHI.DS ---
Discharge Summary Admission Date July 16, 2017 at 05:40 Discharge Date: July 20, 2017 Admitting Diagnosis Brief History - From Admission 52-year-old man with history of CAD/[place], cardiomyopathy ejection fraction 10% on recent cardiac catheterization, diabetes, hyperlipidemia, hypertension, anxiety , GERD, and noncompliant with medical care presented to [place] ED last night with complaints of sob. The patient was previously admitted earlier this month with shortness of breath /chest pain. Patient underwent cardiac catheterization was found to have severe three-vessel coronary artery disease with collateral circulation, severe decreased LV systolic function, vein graft RCA. He was discharged home with continued medical management including metoprolol and enalapril. Patient presented to [facility] emergency department in [place] on 07/16/17 with increased shortness of breath. Says he did not follow with cardiology yet as OP and doesn't have an established cardiology doctor. Initial evaluation revealed chest x-ray with diffuse interstitial lung disease. BNP is noted elevated at 1140, troponin elevated 0.19, 0.17 sequentially. Patient was transferred from [place] emergency department to [facility] with CHF exacerbation. The patient received a total of 80 mg IV lasix in the ED, and was started on lasix 40 mg IVP bid. I spoke with Dr Walls and Dr Cyr cardiology. . CBC/BMP: 07/17/17 0608 07/20/17 0540 Significant Findings Laboratory Tests Test 07/20/17 05:40 Blood Urea Nitrogen 31 MG/DL (7-18) Random Glucose 172 MG/DL (74-106) Sodium Level 132 MEQ/L (136-145) Chloride Level 97 MEQ/L (98-107) Estimat Glomerular Filtration Rate 60 ML/MIN (>89) PE at Discharge GENERAL: This is a 52 yo male appearing older than the stated age, chronically ill, in bed with sob , in some distress. CARDIOVASCULAR: Regular rate and rhythm. RESPIRATORY: Bibasilar crackles. Decreased breath sounds bilaterally. GASTROINTESTINAL: Abdomen soft, non-tender, nondistended. No hepato-splenomegaly , or palpable masses. No guarding. MUSCULOSKELETAL: Extremities without clubbing, cyanosis. Bilateral LE edema. No joint tenderness, effusion, or edema noted. No calf tenderness. Negative Homans sign bilaterally. NEUROLOGICAL: Awake and alert. Cranial nerves II through XII intact. Motor and sensory grossly within normal limits. Five out of 5 muscle strength in all muscle groups. Normal speech. Hospital Course 52-year-old man with: //Dilated cardiomyopathy/ systolic CHF with exacerbation, patient with severely reduced EF of 10% by recent cardiac cath. BNP elevated on admission for Elevated trops poss 2/2 demand ischemia from CHF exacerbation EF 10% by cath. Continue beta herbert, KODY-I Received 80 mg IV lasix in the ED Start lasix 40 mg IV bid Monitor closely kidney function Monitor UOP 2D ECHO pending Was seen by Dr Walls on last admission. Spoke with Dr Walls on admission. There is nothing to revasculate per previous cath per Dr Walls. Dr Schuyler santos has seen the patient and following EKG reviewed and discussed with Dr Payan. EKG however at baseline. Patien timpprved with diuresis, and no need of Milrinone IV drip Telemetry Patient is deteriorating will consult palliative care ABG reviewed and reassuring. Monitor closely. = Patient approved for LifeVest. Can discharge when in place. Follow-up with cardiology as outpatient. Switch to furosemide by mouth twice daily. Will check labs in morning to make sure potassium is stable after being on IV Lasix for 2 days = Potassium 4.5, stable. Will discharge home on by mouth Lasix. Patient will receive LifeVest. We discussed the importance of following up with primary care. Patient and family member at bedside convey understanding. //CAD/ Recent Non-ST elevation [place] s/p recent cardiac cath by Dr Kavita santos s/p recent left heart catheterization and shows severe 3 vessel [place] CAD with patent ROLAND to LAD and good LAD to RCA collaterals. Vein graft to RCA occluded. EF 10% Continue beta-herbert, KODY inhibitor, aspirin //Diabetes mellitus type 2, uncontrolled with A1c of 8 Hold metformin and glipizide can restart at DC. Accuchecks , ISS Recent HA1c 8 Monitor BS //Hyperlipidemia - Secondary to multiple side effects including myalgia, statin is contraindicated //Tobacco use - Tobacco counseling cessation. Patient says he quit recently however Patient with poor prognosis, palliative care consulted however patient wants to be full code. Expect deterioration and multiple readmissions, discussed with Dr. Cyr cardiology and palliative care. DVT prophylaxis: scd/teds/lovenox sq Discharge Planning DC plan: Patient with poor prognosis, palliative care consulted however patient wants to be full code. Expect deterioration and multiple readmissions. Patient is a candidate for hospice however refusing at this time. Discussed with Dr. Cyr cardiology and palliative care. Transfer out of [facility] Palliative care following = Discharge home. Continue medical management. LifeVest to be provided. Follow-up with primary care, cardiology as outpatient. Patient does have some hyponatremia, dehydration on labs. This is after being on IV Lasix twice daily for [address] on half the equivalent dosage p.o. I impressed upon him the importance of following up with primary care for rechecking labs within the next week. Pt Condition on Discharge: Good Discharge Disposition: Discharge Home Discharge Time: > 30 minutes Discharge Instructions DIET: Follow Instructions for: Heart Healthy Diet Activities you can perform: Regular-No Restrictions Follow up Referrals: Cardiology - 1 Week with Erick Walls MD PCP Follow-up - 1 Week with Elsie Tinoco New Medications: Defibrillator Jacket (Defibrillator Jacket) 1 Ea Device EA EXTERNAL ONCE for ICM, #1 Energy = 150 Joules; VT Threshold = 150 BPM; VF Threshold = 200 BPM Use up to 90 days only Furosemide (Furosemide) 40 Mg Tab 40 MG PO BID for heart, #60 TAB 0 Refills Potassium Chloride ER (Potassium Chloride ER) 20 Meq Tab 20 MEQ PO DAILY for Electrolyte Replacement, #30 TAB 0 Refills Aspirin (Tgt Aspirin) 81 Mg Chw 81 MG CHEW DAILY for Blood Clot Prevention for 30 Days, EA Changed Medications: Enalapril (Enalapril) 2.5 Mg Tab 2.5 MG PO BID for Blood Pressure Management for 30 Days, #60 TAB 3 Refills ( Changed from: DAILY@2100; 30) Continued Medications: Fenofibrate (Fenofibrate) 40 Mg Tab 40 MG PO DAILY, #30 TAB 0 Refills Glipizide (Glipizide) 10 Mg Tab 10 MG PO BIDAC for Blood Sugar Management, #60 TAB 0 Refills Take 30 minutes before a meal Metoprolol Tartrate (Metoprolol Tartrate) 25 Mg Tab 12.5 MG PO Q12HR for Blood Pressure Management, #60 TAB 3 Refills Brown Shultz MD July 20, 2017 12:22
[2017-07-20] MEDS ORDERED: glipiZIDE 10 MG TAB PO SCH (17:00)
== END 2017-07-20 13:06 | disposition home or self-care (01) ==
LOC: NEPE 05:35 → INTOOBSV 05:40 → NEDA 05:40 → HCIS 13:30
PROVIDERS: ADMIT Internal Medicine; ATTEND Internal Medicine
DX: I50.23 Acute on chronic systolic (congestive) heart failure (principal); I42.0 Dilated cardiomyopathy; I25.10 Atherosclerotic heart disease of native coronary artery without angina pectoris; I11.0 Hypertensive heart disease with heart failure; E78.5 Hyperlipidemia, unspecified; E11.65 Type 2 diabetes mellitus with hyperglycemia; E78.00 Pure hypercholesterolemia, unspecified; K21.9 Gastro-esophageal reflux disease without esophagitis; I25.5 Ischemic cardiomyopathy; I25.2 Old myocardial infarction; J84.9 Interstitial pulmonary disease, unspecified; F17.210 Nicotine dependence, cigarettes, uncomplicated; Z79.84 Long term (current) use of oral hypoglycemic drugs; Z86.711 Personal history of pulmonary embolism; Z91.19 Patient's noncompliance with other medical treatment and regimen; Z82.49 Family history of ischemic heart disease and other diseases of the circulatory system; Z83.3 Family history of diabetes mellitus
CPT/HCPCS: 36600; 71045; 80048; 80053; 80069; 82805; 82948; 83735; 83880; 84484; 85025; 85610; 85730; 93005; 93306; 96372; 96374; 96375; 96376; 97162; 99285; G0378; G8987; G8988; J1650; J1815; J1940; J2405